=== PATIENT | female | born 1980 | race Two or more races ===

== ENCOUNTER → 2017-11-11 16:49 | Outpatient (REF) | payer OTHER, SELFPAY ==
[2017-11-14 20:02] LABS: Neisseria gonorrhoeae, NAA Negative (Negative)
== END ==
LOC: LAB 16:49
PROVIDERS: Visit Provider Nurse Practitioner Obstetrics & Gynecology
DX: R10.9 Unspecified abdominal pain (principal)
CPT/HCPCS: 87491; 87591

== ENCOUNTER → 2017-11-12 15:30 | Outpatient (CLI) | payer OTHER, SELFPAY ==
[2017-11-12 15:44] LABS: Basophils % 0.4 % (0.1-2.0); Eosinophils # 0.2 K/mm3 (0.0-0.4); Eosinophils % 2.1 % (0.1-12.0); Hematocrit 43.1 % (37.0-47.0); Hemoglobin 13.5 g/dL (12.2-16.2); Lymphocytes # 2.1 K/mm3 (0.7-4.5); Lymphocytes % 24.4 K/mm3 (10-50); Mean Corpuscular HGB Conc 31.3 g/dL (31.8-35.4); Mean Corpuscular Hemoglobin 28.8 pg (27.0-31.2); Mean Platelet Volume 7.8 fl (7.4-10.4); Monocytes # 0.5 K/mm3 (0.1-1.0); Monocytes % 5.2 % (1.7-9.3); Neutrophils # 5.9 K/mm3 (1.8-7.8); Neutrophils % 67.9 % (37.0-80.0); Platelet Count 269 K/mm3 (142-424); Red Blood Count 4.68 M/mm3 (4.20-5.40); Red Cell Distribution Width 12.1 % (11.5-17.5); White Blood Count 8.6 K/mm3 (4.8-10.8)
== END ==
PROVIDERS: Visit Provider Nurse Practitioner Obstetrics & Gynecology
DX: R10.2 Pelvic and perineal pain (principal)
CPT/HCPCS: 36415; 85025

== ENCOUNTER 2017-11-12 16:29 | Outpatient (CLI) | payer OTHER, SELFPAY ==
[2017-11-12 16:51] VITALS: BP 133/84; PULSE 71; RESP 18; TEMP 36.8; O2SAT 98
[2017-11-12 17:20] VITALS: BP 122/85; PULSE 70; RESP 18; TEMP 36.8; O2SAT 98
--- NOTE | 2017-11-12 17:20 | PC.NURSE ---
11/12/17 Chuy Consulted with pharmacy regarding pt allergy to Cephalosporins. Pt states she has received Rocephin in past without problems. Pt feels safe to receive Rocephin. Pt aware and understanding of all s/s medication reaction.
--- NOTE | 2017-11-12 17:41 | PC.NURSE ---
11/12/17 1720 Pt with no s/s reaction to Rocephin noted.
== END 2017-11-12 17:25 | disposition home or self-care (01) ==
LOC: INF 16:30
PROVIDERS: PCP Family Medicine; Visit Provider Nurse Practitioner Obstetrics & Gynecology
DX: R10.2 Pelvic and perineal pain (principal); R10.9 Unspecified abdominal pain
CPT/HCPCS: 96372

== ENCOUNTER → 2018-01-06 11:59 | Outpatient (CLI) | payer OTHER, SELFPAY ==
--- NOTE | 2018-01-06 09:17 | XR_ITS ---
XR shoulder LT min 2V HISTORY: Left shoulder injury with pain ITS.REASON: AP, AXILLARY AND Y VIEWS ORDERING PHYSICIAN: Chaitanya Hein MD PATIENT AGE: 37 years Comparison: None FINDINGS: No fracture or dislocation. No lytic or blastic change. There is normal mineralization. The joint spaces are well-preserved. No significant degenerative/arthritic changes. No erosive changes evident. IMPRESSION: Negative, no acute finding
--- NOTE | 2018-01-06 12:01 | MR_ITS ---
MR shoulder LT wo con HISTORY:Left shoulder pain and instability and limited range of motion following injury ITS.REASON: left shoulder instability ORDERING PHYSICIAN: Chaitanya Hein MD PATIENT AGE: 37 years Comparison: None TECHNIQUE: Standard multiplanar multiecho sequences are performed without contrast. FINDINGS: No acute fracture or dislocation is evident. There is downward sloping of the acromion anteriorly with mild subacromial stenosis. There is some thickening of the supraspinatus tendon distally with increased T2 signal consistent with tendinopathy/tendinosis. No definite tear apparent. There is a lobular area of decreased T1 and T2 signal along the distal aspect of the supraspinatous tendon laterally. This is felt to represent some hyperostosis of the anterior aspect of the bicipital groove. Review of the plain films does demonstrates a subtle calcific density at the bicipital tendon groove in retrospect. This could be due to old injury. No donor site apparent that would indicate an avulsion-type fracture. The infraspinatus and teres minor tendons appear intact. There is a small amount fluid in the subdeltoid region and within the bicipital tendon sheath. Bicipital tendon to the long head of the biceps appears intact. A small amount fluid also noted deep to the infraspinatus tendon. There is thickening of the distal aspect of the supraspinatus tendon with small amount of fluid signal intensity at the distal supraspinatus just anterior to the bicipital tendon groove There is a mild degree of motion artifact on the axial images. The anterior labrum shows some slight increased T2 signal with some minimal irregularity of the articular surface. A definite labral tear however is not identified on both the coronal and axial images. No fracture or bone bruise. IMPRESSION: 1. Tendinopathy/tendinosis of the supraspinatus tendon. No definite tear of the supraspinatus tendon. 2. There is thickening of the distal aspect of the subscapularis tendon consistent with tendinopathy/tendinosis with some fluid signal intensity distally. 3. Slight increased T2 signal of the anterior glenoid labrum which could be posttraumatic. A definite labral tear not identified. Evaluation of the anterior labrum is limited secondary to motion artifact and lack of intra-articular contrast. There is a prominent sublabial recess. 4. Hypertrophic change along the anterior aspect of the bicipital groove.
== END ==
PROVIDERS: Family Provider Family Medicine; PCP Family Medicine; Visit Provider Orthopaedic Surgery
DX: M25.312 Other instability, left shoulder (principal)
CPT/HCPCS: 73030; 73221

== ENCOUNTER → 2018-02-05 08:56 | Outpatient (CLI) | payer OTHER, SELFPAY ==
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
== END ==
PROVIDERS: PCP Family Medicine; Visit Provider Family Medicine
DX: M53.82 Other specified dorsopathies, cervical region (principal); M54.2 Cervicalgia; V89.2XXD Person injured in unspecified motor-vehicle accident, traffic, subsequent encounter
CPT/HCPCS: 72050

== ENCOUNTER 2018-02-05 17:00 | Outpatient (RCR) | payer OTHER, SELFPAY ==
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
== END 2018-02-05 17:01 | disposition home or self-care (01) ==
LOC: PT 17:00
PROVIDERS: Family Provider Family Medicine; PCP Family Medicine; Visit Provider Family Medicine
DX: M53.82 Other specified dorsopathies, cervical region (principal); M62.838 Other muscle spasm
CPT/HCPCS: 97010; 97014; 97110; 97140; 97163; G0283

== ENCOUNTER 2018-04-28 17:00 | Outpatient (RCR) | payer OTHER, SELFPAY | END 2018-04-28 17:05 | disposition home or self-care (01) | LOC: PT 17:00 | PROVIDERS: Family Provider Family Medicine; PCP Family Medicine; Visit Provider Physician Assistant | DX: Z48.89 Encounter for other specified surgical aftercare (principal) | CPT/HCPCS: 97010; 97014; 97016; 97110; 97140; 97163; G0283 ==

== ENCOUNTER → 2018-06-30 16:03 | Outpatient (CLI) | payer OTHER, SELFPAY ==
[2018-06-30 18:15] LABS: HCG Qualitative, Serum Negative (Negative)
[2018-07-02 08:45] LABS: HIV Screen 4th Generation wRfx Non Reactive (Non Reactive)
[2018-07-02 09:30] LABS: Rapid Plasma Reagin Ab Titer Non Reactive (NonRea<1:1)
[2018-07-02 09:31] LABS: HSV 2 IgG, Type Spec <0.91 index (0.00-0.90)
[2018-07-02 11:29] LABS: Hep A Ab, IgM Negative (Negative); Hepatitis B Core Antibody IgM Negative (Negative); Hepatitis B Surface Antigen Negative (Negative)
[2018-07-02 11:51] LABS: Hepatitis C Antibody <0.1 s/co ratio (0.0-0.9)
== END ==
PROVIDERS: Visit Provider Nurse Practitioner Obstetrics & Gynecology
DX: Z72.51 High risk heterosexual behavior (principal)
CPT/HCPCS: 36415; 80074; 84703; 86592; 86695; 86703; 86790; G0432

== ENCOUNTER → 2018-07-15 16:14 | Outpatient (CLI) | payer OTHER, SELFPAY ==
--- NOTE | 2018-07-15 16:16 | MM_ITS ---
MM Dig screening mamm BI w/CAD CAD Screening COMPARISON: None, this is baseline INDICATION: There is a history of breast cancer in the patient's maternal aunt. TECHNIQUE: Standard CC and MLO images were obtained. R2 CAD reviewed. FINDINGS: Prominent diffuse somewhat heterogenic fibroglandular densities are seen throughout both breasts and the findings are fairly symmetrical bilaterally. There is no suspicious lesion and there are no suspicious microcalcifications. IMPRESSION: Moderate diffuse breast density with no suspicious lesion seen BI-RADS Category: 1 Negative RECOMMENDED FOLLOW-UP: 1YR - 1 YEAR FOLLOW-UP after the age of 40 (A letter has been sent to the patient regarding results of the study.)
== END ==
PROVIDERS: PCP Family Medicine; Visit Provider Nurse Practitioner Obstetrics & Gynecology
DX: Z12.31 Encounter for screening mammogram for malignant neoplasm of breast (principal); Z80.3 Family history of malignant neoplasm of breast
CPT/HCPCS: 77067

== ENCOUNTER → 2019-01-06 07:17 | Outpatient (CLI) | payer OTHER, SELFPAY ==
--- NOTE | 2019-01-06 15:35 | XR_ITS ---
PROCEDURE: XR CERVICAL SPINE W FLEX/EXT CLINICAL INDICATION: neck pain COMPARISON: [id number] XR cervical spine 5V from 02/05/2018 FINDINGS: There is reversal of the cervical lordosis with mild anterolisthesis of C3 on C4 of 2 mm and C4 on C5 of 2 mm. No fracture or dislocation is evident. No lytic or blastic change. No foraminal narrowing. Flexion and extension views of the cervical spine show no abnormal subluxation in flexion or extension. IMPRESSION: Straightening of lordosis with minimal anterolisthesis of C3 on 4 and C4 on 5 which could be due to patient positioning or muscle spasm. Otherwise negative Dictated by: Kenneth Melo MD 01/06/2019 17:48 Signed by: <Electronically signed by Kenneth Melo MD in [place]> 01/06/2019 17:48
== END ==
PROVIDERS: PCP Family Medicine; Visit Provider Orthopaedic Surgery
DX: M54.2 Cervicalgia (principal)
CPT/HCPCS: 72052

== ENCOUNTER → 2019-01-13 12:45 | Outpatient (CLI) | payer OTHER, SELFPAY ==
--- NOTE | 2019-01-13 12:47 | MR_ITS ---
PROCEDURE: MR CERVICAL SPINE WO CON CLINICAL INDICATION: neck pain Neck pain radiating into the left side and upper back area the COMPARISON: XR CERVICAL SPINE W FLEX/EXT from 01/06/2019 TECHNIQUE: Standard multiplanar multiecho sequences are performed without contrast. 3-D MIP and myelographic images are also rendered and reviewed FINDINGS: There is normal alignment. The cranial cervical junction has an unremarkable appearance. The spinal cord is unremarkable. C2-C3: There is some minimal disc desiccation. C3-C4: Minimal disc desiccation. C4-C5: There is minimal anterolisthesis of C4 on C5 of 2 mm. There is minimal right paracentral disc protrusion without impingement C5-C6: Minimal bulging disc. No canal stenosis. C6-C7: Bulging disc with a small right paracentral disc protrusion. There is minimal contour deformity along the anterior and right aspect of the cord as seen on the axial images with minimal flattening noted but without obvious direct impingement of the disc on the cord. The canal is narrowed at this level due to the protruding disc measuring 10 mm. No foraminal narrowing. There is minimal right lateral recess narrowing. C7-T1: Unremarkable. IMPRESSION: 1. Small right paracentral disc protrusion is C6-C7 with some mild contour deformity along the anterior right aspect of the cord but no direct cord compression from the disc. There narrowing of the canal at 10 mm and mild right lateral recess narrowing at this level. 2. Minimal disc desiccation at C2-C3 and C3-C4 with minimal bulging disc at C5-C6 and minimal right paracentral disc protrusion without impingement at C4-C5 Dictated by: Kenneth Melo MD 01/14/2019 08:49 Signed by: <Electronically signed by Kenneth Melo MD in [place]> 01/14/2019 08:49
== END ==
PROVIDERS: PCP Family Medicine; Visit Provider Orthopaedic Surgery
DX: M54.2 Cervicalgia (principal)
CPT/HCPCS: 72141; 76376

== ENCOUNTER 2019-01-18 17:21 | Outpatient (RCR) | payer OTHER, SELFPAY ==
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
== END 2019-01-18 17:25 | disposition home or self-care (01) ==
LOC: PT 17:21
PROVIDERS: Visit Provider Orthopaedic Surgery
DX: M54.2 Cervicalgia (principal); S13.4XXA Sprain of ligaments of cervical spine, initial encounter
CPT/HCPCS: 97010; 97012; 97014; 97110; 97163; G0283

== ENCOUNTER → 2019-05-18 12:49 | Outpatient (CLI) | payer OTHER, SELFPAY ==
[2019-05-18 12:55] LABS: Adenovirus F 40/41, stool Not Detected (NotDetected); Astrovirus Not Detected (NotDetected); Campylobacter Not Detected (NotDetected); Clostridium Difficile A/B, PCR Not Detected (NotDetected); Cryptosporidium Not Detected (NotDetected); Cyclospora Cayetanesis Not Detected (NotDetected); Entamoeba histolytica Not Detected (NotDetected); Enterotoxigenic E coli Not Detected (NotDetected); Giardia lamblia Not Detected (NotDetected); Norovirus Not Detected (NotDetected); Plesimonas Shigalloides, PCR Not Detected (NotDetected); Rotavirus A Not Detected (NotDetected); Salmonella, PCR Not Detected (NotDetected); Sapovirus Not Detected (NotDetected); Shiga-like toxin E coli Not Detected (NotDetected); Shigella Enterovasive E coli Not Detected (NotDetected); Vibrio Cholerae Not Detected (NotDetected); Vibrio, PCR Not Detected (NotDetected); Yersinia Entercolitica, PCR Not Detected (NotDetected)
[2019-05-18 16:06] LABS: Enteropathogenic E coli Detected (NotDetected)
[2019-05-18 16:07] LABS: Enteroaggregative E coli Detected (NotDetected)
== END ==
PROVIDERS: Visit Provider Family Medicine
DX: R19.7 Diarrhea, unspecified (principal); A04.0 Enteropathogenic Escherichia coli infection; A04.4 Other intestinal Escherichia coli infections
CPT/HCPCS: 87507

== ENCOUNTER → 2019-07-01 09:10 | Outpatient (CLI) | payer OTHER, SELFPAY ==
[2019-07-01 09:11] LABS: Adenovirus F 40/41, stool Not Detected (NotDetected); Astrovirus Not Detected (NotDetected); Campylobacter Not Detected (NotDetected); Clostridium Difficile A/B, PCR Not Detected (NotDetected); Cryptosporidium Not Detected (NotDetected); Cyclospora Cayetanesis Not Detected (NotDetected); Entamoeba histolytica Not Detected (NotDetected); Enteroaggregative E coli Not Detected (NotDetected); Enteropathogenic E coli Not Detected (NotDetected); Enterotoxigenic E coli Not Detected (NotDetected); Giardia lamblia Not Detected (NotDetected); Norovirus Not Detected (NotDetected); Plesimonas Shigalloides, PCR Not Detected (NotDetected); Rotavirus A Not Detected (NotDetected); Salmonella, PCR Not Detected (NotDetected); Sapovirus Not Detected (NotDetected); Shiga-like toxin E coli Not Detected (NotDetected); Shigella Enterovasive E coli Not Detected (NotDetected); Vibrio Cholerae Not Detected (NotDetected); Vibrio, PCR Not Detected (NotDetected); Yersinia Entercolitica, PCR Not Detected (NotDetected)
== END ==
PROVIDERS: Visit Provider Nurse Practitioner
DX: R19.7 Diarrhea, unspecified (principal); Z86.19 Personal history of other infectious and parasitic diseases
CPT/HCPCS: 87507

== ENCOUNTER → 2019-08-11 08:15 | Outpatient (CLI) | payer OTHER, SELFPAY ==
[2019-08-11 09:20] LABS: Basophils % 0.5 % (0.1-2.0); Eosinophils # 0.1 K/mm3 (0.0-0.4); Eosinophils % 1.8 % (0.1-12.0); Hematocrit 43.7 % (37.0-47.0); Lymphocytes # 1.9 K/mm3 (0.7-4.5); Lymphocytes % 31.4 % (10-50); Mean Corpuscular HGB Conc 31.9 g/dL (31.8-35.4); Mean Corpuscular Hemoglobin 29.5 pg (27.0-31.2); Mean Corpuscular Volume 92.4 fl (81-99); Mean Platelet Volume 8.2 fl (7.4-10.4); Monocytes # 0.3 K/mm3 (0.1-1.0); Monocytes % 4.4 % (1.7-9.3); Neutrophils # 3.8 K/mm3 (1.8-7.8); Platelet Count 247 K/mm3 (142-424); Red Blood Count 4.73 M/mm3 (4.20-5.40); Red Cell Distribution Width 12.5 % (11.5-17.5); White Blood Count 6.2 K/mm3 (4.8-10.8)
[2019-08-11 09:21] LABS: Adenovirus F 40/41, stool Not Detected (NotDetected); Astrovirus Not Detected (NotDetected); Campylobacter Not Detected (NotDetected); Clostridium Difficile A/B, PCR Not Detected (NotDetected); Cryptosporidium Not Detected (NotDetected); Cyclospora Cayetanesis Not Detected (NotDetected); Entamoeba histolytica Not Detected (NotDetected); Enteroaggregative E coli Not Detected (NotDetected); Enteropathogenic E coli Not Detected (NotDetected); Enterotoxigenic E coli Not Detected (NotDetected); Giardia lamblia Not Detected (NotDetected); Norovirus Not Detected (NotDetected); Plesimonas Shigalloides, PCR Not Detected (NotDetected); Rotavirus A Not Detected (NotDetected); Salmonella, PCR Not Detected (NotDetected); Sapovirus Not Detected (NotDetected); Shiga-like toxin E coli Not Detected (NotDetected); Shigella Enterovasive E coli Not Detected (NotDetected); Vibrio Cholerae Not Detected (NotDetected); Vibrio, PCR Not Detected (NotDetected); Yersinia Entercolitica, PCR Not Detected (NotDetected)
[2019-08-11 09:51] LABS: Erythrocyte Sedimentation Rate 7 mm/hr (0-20)
[2019-08-11 10:14] LABS: Occult Blood,Stool Negative (Negative)
[2019-08-11 11:18] LABS: Alanine Aminotransferase 20 U/L (12-78); Albumin Level 4.1 g/dl (3.5-5.0); Albumin/Globulin Ratio 1.6 (1.1-1.8); Alkaline Phosphatase 117 U/L (38-126); Anion Gap 9.8 mEq/L (5-15); Aspartate Amino Transferase 28 U/L (14-36); Bilirubin,Total 0.3 mg/dl (0.2-1.3); Blood Urea Nitrogen 12 mg/dl (7-17); Calcium 9.5 mg/dl (8.4-10.2); Carbon Dioxide 29 mmol/L (22.0-30.0); Chloride 104 mmol/L (98-107); Estimated Glomerular Filt Rate 71 ml/min (>60); GFR (African American) 86 ML/MIN (>60); Globulin 2.6 g/dL (1.3-3.2); Glucose 64 mg/dl (74-100); Potassium 3.8 mmoL/L (3.5-5.1); Sodium 139 mmol/L (136-145); Total Protein,Serum 6.7 g/dl (6.3-8.2)
[2019-08-11 11:23] LABS: C-Reactive Protein 0.7 mg/L (0-4)
[2019-08-11 11:52] LABS: Ferritin 59.9 ng/ml (6.24-137)
[2019-08-12 06:09] LABS: Iron 62 ug/dL (27-159); UIBC 231 ug/dL (131-425)
[2019-08-13 11:25] LABS: Deamidated Gliadin Abs, IgA 3 units (0-19); Deamidated Gliadin Abs, IgG 1 units (0-19); Endomysial IgA Antibody Negative (Negative); Iron Saturation 21 % (15-55); Reticulin IgA Antibody Negative titer (Neg:<1:2.5); Tissue Transglutaminase IgA Ab <2 U/mL (0-3); Tissue Transglutaminase IgG Ab <2 U/mL (0-5); Vitamin B12 952 pg/mL (232-1245); Vitamin D 25 Hydroxy 71.2 ng/mL (30.0-100.0)
[2019-08-13 15:29] LABS: Calprotectin, Fecal <16 ug/g (0-120)
[2019-08-13 15:29] LABS: Saccharomyces cerevisiae, IgA <20.0 Units (0.0-24.9); Saccharomyces cerevisiae, IgG 55.7 Units (0.0-24.9)
[2019-08-16 14:29] LABS: Lactoferrin, Fecal, Quant. <1.00 ug/mL(g) (0.00-7.24)
== END ==
PROVIDERS: Visit Provider Internal Medicine Gastroenterology
DX: R19.7 Diarrhea, unspecified (principal)
CPT/HCPCS: 36415; 80053; 82272; 82607; 82652; 82728; 83516; 83540; 83550; 83630; 83993; 85025; 85651; 86140; 86255; 86256; 86671; 87205; 87507; G0328

== ENCOUNTER → 2019-09-29 07:47 | Outpatient (CLI) | payer OTHER, SELFPAY ==
[2019-09-29 07:54] LABS: Adenovirus,PCR Not Detected (NotDetected); Bordetella Pertussis Not Detected (NotDetected); Chlamydophila Pneumoniae, PCR Not Detected (NotDetected); Coronavirus 19, PCR Not Detected (NotDetected); Coronavirus 229E Not Detected (NotDetected); Coronavirus NL63 Not Detected (NotDetected); Coronavirus OC43 Not Detected (NotDetected); Coronovirus HKU1,PCR Not Detected (NotDetected); Human Metapneumovirus Not Detected (NotDetected); Influenza A, PCR Not Detected (NotDetected); Influenza AH1, 2009 Not Detected (NotDetected); Influenza AH1, PCR Not Detected (NotDetected); Influenza AH3,PCR Not Detected (NotDetected); Influenza B, PCR Not Detected (NotDetected); Mycoplasma Pneumoniae, PCR Not Detected (NotDected); Parainfluenza 1, PCR Not Detected (NotDetected); Parainfluenza 2, PCR Not Detected (NotDetected); Parainfluenza 3, PCR Not Detected (NotDetected); Parainfluenza 4, PCR Not Detected (NotDetected); Respiratory Syncytial Virus Not Detected (NotDetected); Rhinovirus/Enterovirus Not Detected (NotDetected)
--- NOTE | 2019-09-29 16:24 | PC.NURSE ---
notified pt of negative COVID 19 results.
== END ==
PROVIDERS: Visit Provider Internal Medicine Gastroenterology
DX: Z01.818 Encounter for other preprocedural examination (principal)
CPT/HCPCS: 87581; 87633; 87798

== ENCOUNTER 2019-10-01 07:23 | Day surgery (SDC) | payer OTHER, SELFPAY ==
--- NOTE | 2019-09-28 10:40 | SUR.PREOP ---
09/28/19 @ 1042--PHONE CALL MADE TO PATIENT. PATIENT UNDERSTANDS THAT LAB WORK AND COVID TESTING NEEDS TO BE COMPLETED @ BEFORE 12 PM ON 09/29/19. PATIENT UNDERSTANDS IF LAB WORK AND COVID-19 TESTS ARE NOT COMPLETED BY 12PM ON THAT DATE, THE SURGERY SCHEDULED WILL BE CANCELLED AND RESCHEDULED FOR ANOTHER TIME.
[2019-09-30 10:08] VITALS: BMI 49.1
[2019-10-01] VITALS (7 sets, daily range): BP systolic 82–130; BP diastolic 47–84; PULSE 62–80; RESP 18; TEMP 36.2–36.3; O2SAT 94–100
[2019-10-01 08:06] LABS: Urine Pregnancy, HCG Qual. Negative (Negative)
--- NOTE | 2019-10-01 08:39 | HMH.ANESCL ---
[facility] Anesthesia Checklist - Structural Data Admitted From: Home Planned Operative Procedure/s: egd/colonoscopy Consent for Planned Operative Procedure(s) Verified: Yes - Airway Assessment C-Spine Mobility Assessed: Yes TMJ Mobility Assessed: Yes Dentition: Good Dentition - Neurological Assessment Level of Consciousness: Awake, Alert, Appropriate - Anesthesia Plan Anesthesia Risk discussed: Yes Anesthesia Plan: Verified ASA Class: II Anesthesia Type: MAC [facility] History I have reviewed the patient's past medical history: Yes Medical History: Reports:: Anxiety Denies:: Cancer, Depression, Diabetes Mellitus Type 1, Diabetes Mellitus Type 2, Hyperlipidemia, Hypertension, Internal Pacemaker, Migraine, MRSA, Seizures *Have you ever received a pneumonia vaccine?: No *Have you received a flu vaccine this season?: Yes Other Medical History: Reports: Other Anesthesia experience/problems:: none Laterality Cases: Left: Arthroscopy Shoulder Other Surgeries: Yes: Other. 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
--- NOTE | 2019-10-01 08:43 | HMH.PROC ---
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 She has had some longstanding digestive issues dating back to college. She was diagnosed with a history of Reyna's esophagus and prior peptic ulcer disease. She did travel on a cruise in March around 2018 and developed a diarrheal illness. In April, she was found to have enteropathogenic and entero-aggregative E. coli and was treated. She required more than 1 round of antibiotics. She has continued to have urgency and some diarrhea. She reports postprandial bloating, gassiness and crampy discomfort. She has lost approximately 8 to 10 pounds. She did have PCR testing more recently showing no microbial pathogens. Her recent blood work showed normal CBC, CMP, CRP, sed rate. Her celiac serologies were normal. She did have an elevated ASCA IgG antibody (Crohn's serology) at 55. She did take the Bentyl and Creon which helped to control her symptoms. She took Viberzi for 1 or 2 weeks but this led to some crampy discomfort and this was discontinued. Her stool testing showed normal fecal leukocytes, normal lactoferrin normal fecal calprotectin and normal Hemoccult testing. Procedure: Prior to the procedure, a history and physical exam was performed, and patient's medications and allergies were reviewed. The risks, benefits and alternatives of the sedation and procedure were discussed with the patient. All questions were answered and informed consent was obtained. The patient was brought to the procedure room. Patient identification and proposed procedure were verified by the physician and the nurse. The patient was placed in a left lateral decubitus position and the scope was passed under direct vision. Throughout the procedure, the patient's blood pressure, pulse, and oxygen saturations were monitored continuously. The upper GI endoscopy was accomplished without difficulty. The patient tolerated the procedure well. Findings: The scope was passed directly into the upper esophagus and advanced to the third portion of the duodenum. The post bulbar duodenum and duodenal bulb were normal with normal mucosa and conniventes. There was no evidence of scalloping of the conniventes and the mucosa was normal. Cold biopsies were obtained to rule out celiac disease. The scope was withdrawn through a normal duodenal bulb and pylorus into the stomach. There was evidence of linear reactive gastropathy of the antrum of the stomach. The remainder of the antrum, body and fundus of the stomach were grossly normal. Upon retroflexion there was a very small sliding 1 to 2 cm hiatal hernia. 2 biopsies were taken in the antrum and along the lesser curvature for histology to rule out gastritis and/or H pylori. The scope was then withdrawn into the esophagus. There was no evidence of reflux esophagitis or Reyna's. There was 1 very small island of salmon-colored mucosa near the squamocolumnar junction that was biopsied to rule out very short segment Reyna's esophagus. There were some tertiary contractions and mild esophageal dysmotility. The remainder of the esophageal mucosa was normal. Impression: 1. Nonerosive GERD with mild esophageal dysmotility 2. Mild linear reactive gastropathy of the antrum with some bile reflux Plan: I will follow-up the biopsies and discussed the findings with the patient and family. I will proceed with diagnostic colonoscopy. We will discuss additional dietary measures (low FODMAP) and treatment options subsequent to diagnostic testing. I would recommend sucrose breath testing. I would certainly consider course of Xifaxan. I do feel that she has postinfect
--- NOTE | 2019-10-01 09:16 | P.PCN_ITS ---
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 She did develop a diarrheal illness in March 2019 after a cruise. In April, she was diagnosed with 2 strains of E. coli. She was treated with more than one course of antibiotics. Subsequent PCR testing was negative for infectious pathogens. She has continued to have urgency, frequency, diarrhea and crampy discomfort. She has some bloating and gassiness. She does have longstanding digestive issues for 15 to 20 years. The patient did have labs that were essentially normal except for an elevated ASCA IgG antibody of 55. The patient has improved some with Bentyl and Creon but continues to have symptoms. She tried Viberzi which led to some crampy abdominal discomfort. The patient's stool studies showed normal fecal leukocytes, fecal calprotectin and normal lactoferrin. She was Hemoccult negative. Procedure: Prior to the procedure, a history and physical exam was performed, and patient's medications and allergies were reviewed. The risks, benefits and alternatives of the sedation and procedure were discussed with the patient. All questions were answered and informed consent was obtained. The patient was brought to the procedure room. Patient identification and proposed procedure were verified by the physician and the nurse. The patient was placed in a left lateral decubitus position and the scope was passed under direct vision. Throughout the procedure, the patient's blood pressure, pulse, and oxygen saturations were monitored continuously. The colonoscopy was accomplished without difficulty. The patient tolerated the procedure well. Findings: On digital rectal examination there was normal rectal tone. There were no external hemorrhoids. The colonoscope was introduced through the anal canal to the rectum and advanced to the cecum. The ileocecal valve and appendiceal orifice were identified. The scope was advanced 10 to 15 cm into the ileum which appeared grossly normal. Cold biopsies were taken from the ileum to rule out microscopic ileitis. The scope was then withdrawn into the colon. Cold biopsies were taken from the right colon to rule out microscopic colitis. The remaining cecum, ascending, transverse and descending colon were normal. There was moderate colonic redundancy/tortuosity. There was a 5 mm polyp in the sigmoid colon removed via cold snare polypectomy. There were no mucosal abnormalities identified. Upon retroflexion within the rectum there were grade 1 internal hemorrhoids.The preparation was excellent throughout with [place] Preparation Score of 9. The cecal time was 12 minutes. Impression: 1. Diminutive sigmoid colon polyp 2. Mild colonic redundancy 3. Grade 1 internal hemorrhoids Plan: I will follow-up the biopsies to rule out microscopic/lymphocytic colitis. 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 We will discuss additional diet and treatment options. I will have her do sucrose breath testing. I will follow-up the polyp histology and recommend repeat screening/surveillance colonoscopy in 5 to 7 years if the polyp is adenomatous.
== END 2019-10-01 10:27 | disposition home or self-care (01) ==
PROVIDERS: PCP Family Medicine; Visit Provider Internal Medicine Gastroenterology
PROC: 0DJ08ZZ Inspection of Upper Intestinal Tract, Via Natural or Artificial Opening Endoscopic (ICD-10-PCS; CPT 43235; principal; 2019-10-01 08:30)
DX: R19.7 Diarrhea, unspecified (principal); K21.9 Gastro-esophageal reflux disease without esophagitis; K31.9 Disease of stomach and duodenum, unspecified; K22.4 Dyskinesia of esophagus; K64.0 First degree hemorrhoids; D12.5 Benign neoplasm of sigmoid colon
CPT/HCPCS: 45385; 45380; 43239; 81025

== ENCOUNTER → 2020-01-03 15:44 | Outpatient (POV) | payer OTHER, SELFPAY | PROVIDERS: PCP Family Medicine; Visit Provider Nurse Practitioner Family | DX: Z00.00 Encounter for general adult medical examination without abnormal findings (principal) ==

== ENCOUNTER 2020-01-12 16:03 | Emergency (ER) | payer OTHER, SELFPAY ==
[2020-01-12 16:04] VITALS: BP 141/95; PULSE 99; RESP 17; TEMP 37.2; O2SAT 97; BMI 22.3
[2020-01-12 16:28] LABS: Basophils % 0.4 % (0.1-2.0); Eosinophils # 0.1 K/mm3 (0.0-0.4); Eosinophils % 1.1 % (0.1-12.0); Hematocrit 44.7 % (37.0-47.0); Hemoglobin 15.2 g/dL (12.2-16.2); Lymphocytes # 2.2 K/mm3 (0.7-4.5); Lymphocytes % 20.5 % (10-50); Mean Corpuscular HGB Conc 34.1 g/dL (31.8-35.4); Mean Corpuscular Hemoglobin 31.5 pg (27.0-31.2); Mean Corpuscular Volume 92.2 fl (81-99); Monocytes # 0.5 K/mm3 (0.1-1.0); Monocytes % 4.9 % (1.7-9.3); Neutrophils # 7.9 K/mm3 (1.8-7.8); Neutrophils % 73.1 % (37.0-80.0); Platelet Count 263 K/mm3 (142-424); Red Blood Count 4.84 M/mm3 (4.20-5.40); Red Cell Distribution Width 12.5 % (11.5-17.5); White Blood Count 10.9 K/mm3 (4.8-10.8)
[2020-01-12 16:38] LABS: Alanine Aminotransferase 23 U/L (12-78); Albumin Level 4.5 g/dl (3.5-5.0); Alkaline Phosphatase 89 U/L (38-126); Aspartate Amino Transferase 34 U/L (14-36); Bilirubin,Direct 0.1 mg/dl (0.0-0.4); Bilirubin,Indirect 0.5 mg/dL (0.0-0.9); Bilirubin,Total 0.6 mg/dl (0.2-1.3); Bilirubin,Unconjugated 0.6 mg/dL (0.0-1.1); Total Protein,Serum 7.6 g/dl (6.3-8.2)
--- NOTE | 2020-01-12 16:47 | HMH.EDWNDL ---
ED Disposition Clinical Impression: Needle stick injury of finger of left hand Disposition: Home, Self-Care Condition on Discharge: Good Instructions: DI for Wound Infection Additional Instructions: Blood has been collected and we have prescribed sulfa. Please follow up as needed. Your are up to date on tetanus Prescriptions: Sulfamethoxazole/Trimethoprim [Bactrim DS tablet] 1 each PO BID 7 Days #14 tab Transmission Status: Pending to [facility] Referrals: Trevin Harmon MD [Primary Care Provider] - Time of Disposition: 16:56 - Critical Care Critical Care Time: No Attestation: On 01/12/20, the high probability of a clinically significant, sudden or life threatening deterioration of the following system(s) required my full and direct attention, intervention and personal management. The time I documented below is in addition to time spent performing reported procedures but includes the following listed in this critical care notation. Medical Decision Making - Medical Records Medical records reviewed: Yes: I reviewed the patient's medical records. 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 States the patient is not suspected of having hepatitis or HIV. We have collected the necessary blood work and she will be dc home with a sulfa. The results will be intimated to her in due course - Joel Inquiry Pt receiving controlled substance: No Vital Signs: 01/12/20 16:04 Temperature 98.9 F Temperature Source Oral Pulse Rate [Right Radial] 99 H Respiratory Rate 17 Blood Pressure [Right Arm] 141/95 H Blood Pressure Mean [Right Arm] 110 02 Sat by Pulse Oximetry 97 Oxygen Delivery Method Room Air - Lab Data Lab results reviewed: Yes: I reviewed the patient's lab results. Lab Results 01/12/20 16:15: WBC 10.9 H, RBC 4.84, Hgb 15.2, Hct 44.7, MCV 92.2, MCH 31.5 H, MCHC 34.1, RDW 12.5, Plt Count 263, MPV 8.0, Neut % (Auto) 73.1, Lymph % (Auto) 20.5, [place] % (Auto) 4.9, Eos % (Auto) 1.1, Baso % (Auto) 0.4, Neut # (Auto) 7.9 H, Lymph # (Auto) 2.2, [place] # (Auto) 0.5, Eos # (Auto) 0.1, Baso # (Auto) 0.0 Result diagrams: 01/12/20 16:15 Orders (Tests/Meds): ORDERS Category Date Time Status HBsAg Screen Stat Lab 01/12/20 16:15 Received HIV Panel [id number] Stat Lab 01/12/20 16:15 Received Hepatitis B Surf Ab Quant Stat Lab 01/12/20 16:15 Received Hepatitis C Antibody Stat Lab 01/12/20 16:15 Received Liver Panel Stat Lab 01/12/20 16:15 Received PT/PTT Stat Lab 01/12/20 16:15 Received Wound/Laceration HPI - General Chief Complaint: Wound/Laceration Stated Complaint: WC @ 01/11 Needle Stick Time Seen by Provider: 01/12/20 16:40 Mode of Arrival: Ambulatory Source of Information: Patient Limitations: No Limitations Description of Symptoms (Recalled from ER Triage Doc. by RN): pt presents to ed with co dirty needle stick to left hand while operating on a patient. 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 States the patient is not suspected of having hepatitis or HIV Onset (ago): minute(s) Extremity Location: Left: hand Place: work Patient tetanus UTD: Yes Context: accidental Associated symptoms: none - Related Data Home Medications Medication Instructions Recorded Confirmed bupropion HCl 150 mg 24 hr tablet, 150 mg PO QAM 11/11/17 09/30/19 extended release Elagolix Sodium [Orilissa] 150 mg PO DAILY 03/03/19 09/30/19 Multivitamin [Multi-Day Vitamins] 1 each PO DAILY 03/03/19 09/30/19 Dicyclomine HCl [Bentyl 10mg 10 mg PO TID 09/30/19 09/30/19 capsule] Lipase/Protease/Amylase [López Guan 1 each PO TID 09/30/19 09/30/19 36,000 Units Capsule] Previous Rx's Medication Instructions Recorded scopolamine base 1 mg over 3 da
[2020-01-12 16:49] LABS: Activated Partial Thrombo Time 23.6 seconds (23.6-34.0); INR 1.03 (0.9-1.1); Prothrombin Time 10.6 seconds (9.4-11.8)
[2020-01-12 17:02] VITALS: BP 129/85; PULSE 83; RESP 17; TEMP 37.2; O2SAT 99
[2020-01-14 10:16] LABS: HIV Screen 4th Generation wRfx Non Reactive (Non Reactive); Hepatitis B Surf Ab Quant 955.2 mIU/mL (Immunity>9.9); Hepatitis B Surface Antigen Negative (Negative); Hepatitis C Antibody <0.1 s/co ratio (0.0-0.9)
== END 2020-01-12 17:03 | disposition home or self-care (01) ==
PROVIDERS: Emergency Provider Emergency Medicine; PCP Family Medicine
DX: S61.032A Puncture wound without foreign body of left thumb without damage to nail, initial encounter (principal); W22.8XXA Striking against or struck by other objects, initial encounter; Y92.69 Other specified industrial and construction area as the place of occurrence of the external cause; Y99.0 Civilian activity done for income or pay
CPT/HCPCS: 80076; 85025; 85610; 85730; 86703; 86706; 87340; 87380; 99282; G0432

== ENCOUNTER → 2020-06-09 14:12 | Outpatient (CLI) | payer OTHER, SELFPAY | PROVIDERS: PCP Family Medicine; Visit Provider Nurse Practitioner | DX: Z20.822 Contact with and (suspected) exposure to COVID-19 (principal) | CPT/HCPCS: U0003 ==

== ENCOUNTER 2020-08-02 12:32 | Emergency (ER) | payer OTHER, SELFPAY ==
[2020-08-02 12:33] VITALS: BP 128/95; PULSE 68; RESP 18; TEMP 36.8; O2SAT 100; BMI 22.8
--- NOTE | 2020-08-02 12:42 | HMH.EDGENADL ---
ED Disposition Clinical Impression: Laceration of left index finger Qualifiers: Encounter type: initial encounter Damage to nail status: without damage Foreign body presence: without foreign body Qualified Code(s): S61.211A - Laceration without foreign body of left index finger without damage to nail, initial encounter Disposition: Home, Self-Care Condition on Discharge: Good Instructions: DI for Laceration Repair-Skin Glue Additional Instructions: Bactrim as prescribed. Follow-up with infection control for test results. Prescriptions: Sulfamethoxazole/Trimethoprim [Bactrim DS tablet] 1 each PO BID #20 tab Transmission Status: Received by [id number] Referrals: Trevin Harmon MD [Primary Care Provider] - - Critical Care Critical Care Time: No Attestation: On 08/02/20, the high probability of a clinically significant, sudden or life threatening deterioration of the following system(s) required my full and direct attention, intervention and personal management. The time I documented below is in addition to time spent performing reported procedures but includes the following listed in this critical care notation. Medical Decision Making - Joel Inquiry Pt receiving controlled substance: No Vital Signs: 08/02/20 12:33 08/02/20 13:00 Temperature 98.2 F 98.2 F Temperature Source Oral Oral Pulse Rate 70 Pulse Rate [Left Radial] 68 Respiratory Rate 18 20 Blood Pressure 128/87 Blood Pressure [Left Radial Artery] 128/95 H Blood Pressure Mean [Left Radial Artery] 106 Blood Pressure Source [Left Radial Artery] Automatic Cuff Blood Pressure Position [Left Radial Artery] Sitting 02 Sat by Pulse Oximetry 100 Oxygen Delivery Method Room Air Room Air - Lab Data Lab Results 08/02/20 12:43: WBC 8.8, RBC 4.91, Hgb 14.6, Hct 45.9, MCV 93.4, MCH 29.7, MCHC 31.8, RDW 12.6, Plt Count 253, MPV 7.9, Neut % (Auto) 68.2, Lymph % (Auto) 25.3, [place] % (Auto) 5.5, Eos % (Auto) 0.6, Baso % (Auto) 0.4, Neut # (Auto) 6.0, Lymph # (Auto) 2.2, [place] # (Auto) 0.5, Eos # (Auto) 0.1, Baso # (Auto) 0.0 08/02/20 12:43: PT 11.1, INR 0.94, APTT 25.1 08/02/20 12:43: Total Bilirubin 0.7, Direct Bilirubin 0.0, Conjugated Bilirubin 0.0, Indirect Bilirubin 0.7, Unconjugated Bilirubin 0.8, AST 35, ALT 26, Alkaline Phosphatase 106, Total Protein 8.5 H, Albumin 4.9 Result diagrams: 08/02/20 12:43 Orders (Tests/Meds): ED MEDICATIONS Discontinued Medications Generic Name Dose Route Start Last Admin Trade Name Freq PRN Reason Stop Dose Admin Trimethoprim/Sulfamethoxazole 1 each 08/02/20 12:52 08/02/20 12:59 Sulfa/Trimethoprim 1 Tablet PO 08/02/20 12:53 1 each ONCE ONE Administration Protocol ORDERS Category Date Time Status HBsAg Screen Stat Lab 08/02/20 12:43 Received HIV Panel [id number] Stat Lab 08/02/20 12:43 Received Hepatitis B Surf Ab Quant Stat Lab 08/02/20 12:43 Received Hepatitis C Antibody Stat Lab 08/02/20 12:43 Received General Adult HPI - General Chief complaint: Wound/Laceration Stated complaint: WC [id number] exposure Time Seen by Provider: 08/02/20 12:42 Mode of Arrival: Ambulatory Limitations: No Limitations Description of Symptoms (Recalled from ER Triage Doc. 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 She would like to be on antibiotic for MRSA. She says that the patient is low risk for hepatitis and HIV and other blood-borne pathogens. - Related Data Home Medications Medication Instructions Recorded Confirmed Multivitamin [Multi-Day Vitamins] 1 each PO DAILY 03/03/19 07/03/20 Dicyclomine HCl [Bentyl 10mg 10 mg PO TID 09/30/19 07/03/20 capsule] Lipase/Pr
--- NOTE | 2020-08-02 12:56 | PC.NURSE ---
at bedside for laceration repair.
[2020-08-02 13:00] VITALS: BP 128/87; PULSE 70; RESP 20; TEMP 36.8; O2SAT 99
[2020-08-02 13:10] LABS: Basophils % 0.4 % (0.1-2.0); Eosinophils # 0.1 K/mm3 (0.0-0.4); Eosinophils % 0.6 % (0.1-12.0); Hematocrit 45.9 % (37.0-47.0); Hemoglobin 14.6 g/dL (12.2-16.2); Lymphocytes # 2.2 K/mm3 (0.7-4.5); Lymphocytes % 25.3 % (10-50); Mean Corpuscular HGB Conc 31.8 g/dL (31.8-35.4); Mean Corpuscular Hemoglobin 29.7 pg (27.0-31.2); Mean Corpuscular Volume 93.4 fl (81-99); Mean Platelet Volume 7.9 fl (7.4-10.4); Monocytes # 0.5 K/mm3 (0.1-1.0); Monocytes % 5.5 % (1.7-9.3); Neutrophils % 68.2 % (37.0-80.0); Platelet Count 253 K/mm3 (142-424); Red Blood Count 4.91 M/mm3 (4.20-5.40); Red Cell Distribution Width 12.6 % (11.5-17.5); White Blood Count 8.8 K/mm3 (4.8-10.8)
[2020-08-02 13:29] LABS: Alanine Aminotransferase 26 U/L (12-78); Albumin Level 4.9 g/dl (3.5-5.0); Alkaline Phosphatase 106 U/L (38-126); Aspartate Amino Transferase 35 U/L (14-36); Bilirubin,Indirect 0.7 mg/dL (0.0-0.9); Bilirubin,Total 0.7 mg/dl (0.2-1.3); Bilirubin,Unconjugated 0.8 mg/dL (0.0-1.1); Total Protein,Serum 8.5 g/dl (6.3-8.2)
[2020-08-02 13:42] LABS: Activated Partial Thrombo Time 25.1 seconds (23.6-34.0); INR 0.94 (0.9-1.1); Prothrombin Time 11.1 seconds (9.4-11.8)
[2020-08-03 14:22] LABS: HIV Screen 4th Generation wRfx Non Reactive (Non Reactive)
[2020-08-03 14:23] LABS: Hepatitis B Surf Ab Quant >1000.0 mIU/mL (Immunity>9.9); Hepatitis B Surface Antigen Negative (Negative); Hepatitis C Antibody <0.1 s/co ratio (0.0-0.9)
== END 2020-08-02 13:00 | disposition home or self-care (01) ==
LOC: ER 12:41
PROVIDERS: Emergency Provider Emergency Medicine; PCP Family Medicine
DX: S61.211A Laceration without foreign body of left index finger without damage to nail, initial encounter (principal); W26.9XXA Contact with unspecified sharp object(s), initial encounter; Y92.69 Other specified industrial and construction area as the place of occurrence of the external cause; Y99.0 Civilian activity done for income or pay; Z88.1 Allergy status to other antibiotic agents; R03.0 Elevated blood-pressure reading, without diagnosis of hypertension
CPT/HCPCS: 12001; 80076; 85025; 85610; 85730; 86703; 86706; 87340; 87380; 99282; G0432

== ENCOUNTER → 2020-11-06 13:24 | Outpatient (POV) | payer OTHER, SELFPAY | PROVIDERS: Visit Provider Nurse Practitioner Family | DX: Z00.00 Encounter for general adult medical examination without abnormal findings (principal) ==

== ENCOUNTER → 2021-02-06 16:54 | Outpatient (CLI) | payer OTHER, SELFPAY ==
--- NOTE | 2021-02-06 16:57 | XR_ITS ---
PROCEDURE: XR HAND LT MIN 3V CLINICAL INDICATION: Pain COMPARISON: No exams were available for comparison FINDINGS: No fracture or dislocation. No lytic or blastic change. There is normal mineralization. The joint spaces are well-preserved. No significant degenerative/arthritic changes. No erosive changes evident. Other findings:None. IMPRESSION: No acute findings. Dictated by: Kenneth Melo MD 02/06/2021 17:16 Kenneth Melo MD in [facility] 02/06/2021 17:16
== END ==
PROVIDERS: PCP Family Medicine; Visit Provider Nurse Practitioner
DX: M79.642 Pain in left hand (principal)
CPT/HCPCS: 73130

== ENCOUNTER → 2021-02-15 15:13 | Outpatient (CLI) | payer OTHER, SELFPAY | PROVIDERS: PCP Family Medicine; Visit Provider Nurse Practitioner | DX: Z20.822 Contact with and (suspected) exposure to COVID-19 (principal) | CPT/HCPCS: C9803; U0003; U0005 ==

== ENCOUNTER → 2021-03-16 11:09 | Outpatient (CLI) | payer OTHER, SELFPAY ==
[2021-03-16 11:14] LABS: Coronavirus 19, PCR Not Detected (NotDetected); Influenza A, PCR Not Detected (NotDetected); Influenza B, PCR Not Detected (NotDetected)
== END ==
PROVIDERS: Visit Provider Physician Assistant
DX: Z20.822 Contact with and (suspected) exposure to COVID-19 (principal); J02.9 Acute pharyngitis, unspecified; R05.9 Cough, unspecified
CPT/HCPCS: C9803; U0003; U0005

== ENCOUNTER → 2021-03-18 11:24 | Outpatient (CLI) | payer OTHER, SELFPAY ==
[2021-03-18 11:37] LABS: Coronavirus 19, PCR Not Detected (NotDetected); Influenza A, PCR Not Detected (NotDetected); Influenza B, PCR Not Detected (NotDetected)
== END ==
PROVIDERS: PCP Internal Medicine Adolescent Medicine; Visit Provider Internal Medicine Adolescent Medicine
DX: Z20.822 Contact with and (suspected) exposure to COVID-19 (principal)
CPT/HCPCS: C9803; U0003; U0005

== ENCOUNTER → 2021-09-24 08:36 | Outpatient (CLI) | payer OTHER, SELFPAY ==
[2021-09-24 08:40] LABS: Influenza A, PCR Not Detected (NotDetected); Influenza B, PCR Not Detected (NotDetected)
[2021-09-24 08:52] LABS: Coronavirus 19, PCR Detected (NotDetected)
== END ==
PROVIDERS: Visit Provider Nurse Practitioner Family
DX: U07.1 COVID-19 (principal); R05.9 Cough, unspecified
CPT/HCPCS: C9803; U0003; U0005

== ENCOUNTER → 2021-10-10 14:44 | Outpatient (CLI) | payer OTHER, SELFPAY ==
--- NOTE | 2021-10-10 14:53 | XR_ITS ---
FINAL REPORT CLINICAL HISTORY: H/O COVID( dx 2 weeks ago, continued cough. COMPARISON: March 03, 2019 FINDINGS: Two views of the chest were obtained. The heart size and pulmonary vascularity are within normal limits. The mediastinum is normal. No acute pulmonary abnormality is identified. There is no pneumothorax. The bony thorax is intact. IMPRESSION: No active cardiopulmonary disease. Reviewed, Interpreted and Dictated by Smooth Wood III, MD Transcribed by Sylvia Garces Authenticated by Smooth Wood III, MD on 10/10/2021 03:44:10 PM [facility]
[2021-10-10 16:32] LABS: Basophils # 0.1 K/mm3 (0-0.2); Basophils % 0.7 % (0.1-2.0); Eosinophils # 0.1 K/mm3 (0.0-0.4); Eosinophils % 0.9 % (0.1-12.0); Hematocrit 44.4 % (37.0-47.0); Hemoglobin 14.7 g/dL (12.2-16.2); Lymphocytes # 2.1 K/mm3 (0.7-4.5); Lymphocytes % 23.3 % (10-50); Mean Corpuscular HGB Conc 33.1 g/dL (31.8-35.4); Mean Corpuscular Hemoglobin 31.5 pg (27.0-31.2); Mean Corpuscular Volume 95.2 fl (81-99); Mean Platelet Volume 8.7 fl (7.4-10.4); Monocytes # 0.5 K/mm3 (0.1-1.0); Monocytes % 5.6 % (1.7-9.3); Neutrophils # 6.2 K/mm3 (1.8-7.8); Neutrophils % 69.6 % (37.0-80.0); Platelet Count 302 K/mm3 (142-424); Red Blood Count 4.66 M/mm3 (4.20-5.40); White Blood Count 8.8 K/mm3 (4.8-10.8)
[2021-10-10 16:40] LABS: Alanine Aminotransferase 22 U/L (12-78); Albumin Level 4.4 g/dl (3.5-5.0); Albumin/Globulin Ratio 1.6 (1.1-1.8); Alkaline Phosphatase 105 U/L (38-126); Anion Gap 9.7 mEq/L (5-15); Aspartate Amino Transferase 29 U/L (14-36); Blood Urea Nitrogen 17 mg/dl (7-17); Calcium 9.4 mg/dl (8.4-10.2); Carbon Dioxide 29 mmol/L (22.0-30.0); Chloride 102 mmol/L (98-107); Estimated Glomerular Filt Rate 56 ml/min (>60); GFR (African American) 67 ML/MIN (>60); Globulin 2.7 g/dL (1.3-3.2); Glucose 81 mg/dl (74-100); Potassium 3.7 mmoL/L (3.5-5.1); Sodium 137 mmol/L (136-145); Total Protein,Serum 7.1 g/dl (6.3-8.2)
[2021-10-10 16:43] LABS: Bilirubin,Total 0.1 mg/dl (0.2-1.3)
== END ==
PROVIDERS: PCP Family Medicine; Visit Provider Family Medicine
DX: U09.9 Post COVID-19 condition, unspecified (principal); R05.9 Cough, unspecified
CPT/HCPCS: 36415; 71046; 80053; 85025

== ENCOUNTER → 2022-01-14 17:08 | Outpatient (CLI) | payer OTHER, SELFPAY ==
[2022-01-16 12:11] LABS: Estradiol 70.2 pg/mL (.); FSH 7.9 mIU/mL (.); LH 14.2 mIU/mL (.)
[2022-01-19 17:12] LABS: Testosterone,Free 0.5 pg/mL (0.0-4.2)
[2022-01-20 05:13] LABS: Anti Mullerian Hormone (AMH) 1.68 ng/mL (.)
== END ==
PROVIDERS: Nurse Practitioner Family; PCP Family Medicine; Visit Provider Nurse Practitioner Obstetrics & Gynecology
DX: N80.9 Endometriosis, unspecified (principal)
CPT/HCPCS: 82397; 82670; 83001; 83002; 84402

== ENCOUNTER 2023-11-10 15:53 | Outpatient (CLI) | payer OTHER, SELFPAY ==
--- NOTE | 2023-11-10 15:53 | US_ITS ---
FINAL REPORT CLINICAL HISTORY: sore throat/swollen nodes FINDINGS: Limited sonographic images of the right and left parotid glands were obtained. There is a 5 mm benign cystic lesion in the right parotid. There is a 6 mm left parotid nodule most suggestive of lymph node. Small benign-appearing lymph nodes in the bilateral submandibular regions. IMPRESSION: Benign-appearing lymph nodes. Salivary glands are unremarkable. Reviewed, Interpreted and Dictated by Narciso Gomes MD Transcribed by Cornelia Booth Authenticated and [facility]
== END 2023-11-10 23:59 | disposition home or self-care (01) ==
LOC: RAD 15:53
PROVIDERS: PCP Family Medicine; Visit Provider Nurse Practitioner
DX: R59.0 Localized enlarged lymph nodes (principal)
CPT/HCPCS: 76536

== ENCOUNTER 2024-07-21 08:33 | Outpatient (CLI) | payer OTHER, SELFPAY ==
[2024-07-21 10:02] LABS: Basophils % 0.3 % (0.1-2.0); Eosinophils # 0.1 K/mm3 (0.0-0.4); Hematocrit 43.6 % (37.0-47.0); Hemoglobin 14.3 g/dL (12.2-16.2); Lymphocytes # 1.6 K/mm3 (0.7-4.5); Mean Corpuscular HGB Conc 32.8 g/dL (31.8-35.4); Mean Corpuscular Hemoglobin 29.7 pg (27.0-31.2); Mean Corpuscular Volume 90.6 fl (81-99); Mean Platelet Volume 9.9 fl (7.4-10.4); Monocytes # 0.5 K/mm3 (0.1-1.0); Monocytes % 5.4 % (1.7-9.3); Neutrophils # 6.4 K/mm3 (1.8-7.8); Platelet Count 278 K/mm3 (142-424); Red Blood Count 4.81 M/mm3 (4.20-5.40); White Blood Count 8.6 K/mm3 (4.8-10.8)
[2024-07-21 10:20] LABS: Albumin Level 4.6 g/dl (3.5-5.0)
[2024-07-21 10:21] LABS: Chloride 102 mmol/L (98-107); Potassium 4.4 mmoL/L (3.5-5.1); Sodium 139 mmol/L (136-145)
[2024-07-21 10:23] LABS: Alanine Aminotransferase 23 U/L (12-78); Alkaline Phosphatase 95 U/L (38-126); Aspartate Amino Transferase 29 U/L (14-36); Bilirubin,Total 0.6 mg/dl (0.2-1.3); Blood Urea Nitrogen 18 mg/dl (7-17); Estimated Glomerular Filt Rate 61 ml/min (>60); GFR (African American) 74 ML/MIN (>60)
[2024-07-21 10:24] LABS: Albumin/Globulin Ratio 1.8 (1.1-1.8); Anion Gap 13.4 mEq/L (5-15); Calcium 9.5 mg/dl (8.4-10.2); Carbon Dioxide 28 mmol/L (22.0-30.0); Chol/HDL Ratio 2.2 (1-3.5); Cholesterol 121 mg/dl (140-200); Globulin 2.6 g/dL (1.3-3.2); Glucose 81 mg/dl (74-100); HDL Cholesterol 55 mg/dl (40-60); Iron 109 ug/dL (37-170); Total Protein,Serum 7.2 g/dl (6.3-8.2); Triglycerides 55 mg/dl (30-150); VLDL Cholesterol 11 mg/dL (0-40)
[2024-07-21 10:34] LABS: Total Iron Binding Capacity 331 ug/dL (265-497)
[2024-07-21 10:35] LABS: Direct LDL Cholesterol 43.14 mg/dL (100-129)
[2024-07-21 11:00] LABS: Ferritin 88.3 ng/ml (6.24-137)
[2024-07-21 12:05] LABS: Hemoglobin A1C 4.8 % (4.0-6.0)
== END 2024-07-21 23:59 | disposition home or self-care (01) ==
LOC: LAB.DROPOF 07-23 08:34
PROVIDERS: PCP Internal Medicine; Visit Provider Internal Medicine
DX: Z13.1 Encounter for screening for diabetes mellitus (principal); Z13.220 Encounter for screening for lipoid disorders; R53.83 Other fatigue
CPT/HCPCS: 80053; 80061; 82728; 83036; 83540; 83550; 85025

== ENCOUNTER 2024-12-20 11:54 | Outpatient (CLI) | payer OTHER, SELFPAY ==
[2024-12-20 13:36] LABS: Coronavirus 19, PCR Not Detected (NotDetected); Influenza A, PCR Not Detected (NotDetected); Influenza B, PCR Not Detected (NotDetected)
--- OUTSIDE RECORDS SUMMARY | 2024-12-21 15:29 | XMS_ITS | Encounter Summary ---
Author Organization [facility] yste Address [address] [place] [address] Care Team Providers Care Supervisor Cigar Processing Name Role Phone Trevin Harmon MD Primary Care Provider + [phone] Reason for Visit * Reason Comments Med Refill Encounter Details Date Type Department Care Team (Late st Contact Info) Description 03/08/2024 Refill [facility] [address] [id number] Hali Lazaro MD [address] [place] [id number] anxiety Social History Tobacco Use Types Packs/Day Years Used Date Smoking Tobacco: Never Smokeless Tobacco: Never Alcohol Use Standard Drinks/Week Comments Not Currently 0 (1 standard drink = 0.6 oz pur e alcohol) AUDIT-C Answer Date Recorded Q1: How often do you have a drink containing alcohol? Never 01/09/2023 Q2: How many drinks containi ng alcohol do you have on a typical day when you are drinking? Patient does not drink Q3: How often do you have si x or more drinks on one occasion? Never 01/09/2023 Overall Financial Resource Strain (CARDIA) Answe r Date Recorded How hard is it for you to pa y for the very basics like food, housing, medical care, and heating? Not hard at all 01/09/2023 PHQ-2 Answer Date Recorded Retired PHQ-9: Brief Depression Severity Measure Score 0 01/09/2023 Exercise Vital Sign Answer Date Recorde d On average, how many days pe r week do you engage in moderate to strenuous exercise (like a brisk walk)? 5 days 01/09/2023 On average, how many minutes do you engage in exercise at this level? 30 min 01/09/2023 Hunger Vital Sign Answer Date Recorded Within the past 12 months, y ou worried that your food would run out before you got the money to buy more. Never true 01/10/20 23 Within the past 12 months, t he food you bought just didn't last and you didn't have money to get more. Never true 01/09/2023 PRAPARE - Transportation Answer Date Re corded In the past 12 months, has l ack of transportation kept you from medical appointments or from getting medications? No 12/24 In the past 12 months, has l ack of transportation kept you from meetings, work, or from getting things needed for daily living? No 01/09/2023 [place]well Depression Scale Answer Date Recorded Retired [place] Depression Score 19 01/29/2023 Retired EPD Scale: Thought of Harming Self Unrec ognized value 01/29/2023 Abuse Screen Answer Date Recorded Feels Unsafe at Home or Work/School no 01/09/2023 Feels Threatened by Someone no 12/24 Does Anyone Try to Keep You From Having Contact with Others or Doing Things Outside Your Home? no 01/09/2023 Physical Signs of Abuse Present no 01/09/2023 Housing Stability Answer Date Recorded Current Living Arrangements home 12/24 Potentially Unsafe Housing Conditions none 01/09/2023 Family and Community Support Answer Mau e Recorded If for any reason you need h elp with day-to-day activities such as bathing, preparing meals, shopping, managing finances, etc., do you get the help you need? I don't need any help 01/09/2023 How often do you feel lonely or isolated from those around you? Never 01/09/2023 Employment Answer Date Recorded Do you want help finding or keeping work or a job? I do not need or want help 01/09/2023 Disabilities Answer Date Recorded Difficulty Concentrating, Remembering or Making Decisions no 01/09/2023 Difficulty Managing Errands Independently no 01/09/2023 Education Answer Date Recorded Do you want help with school or training? For example, starting or completing job training or getting a high school diploma, GED or equivalent No 01/09/2023 Preferred Language French 01/09/2023 PHQ-2 Answer Date Recorded Retired PHQ-9: Brief Depression Severity Measure Score 0 01/09/2023 Comments No Sex and Gender Information Value Date Recorded Sex Assigned at Not on file Legal Sex Female 3:47 PM EST Gender Identity Not on file Sexual Orientation Not on file documented as of this encounter Plan of Treatment Upcoming Encounters Date Type Department Care Team (Late st Contact Info) Description 04/13/2025 10:50 AM EST Office Visit [facility] [address] [place] [address] Hali Lazaro MD [address] [facility] [address] [place] [id number] documented as of this encounter Visit Diagnoses Diagnosis anxiety documented in this encounter Care Teams Supervisor Cigar Processing Relationship Specialty Start Date End Date Trevin Harmon MD [address] [facility] [address] [facility] [address] [place] [address] PCP - General Family Medicine 05/29/22 documented as of this encounter
--- OUTSIDE RECORDS SUMMARY | 2024-12-21 15:29 | XMS_ITS | Data Portability ---
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 Lab None recorded. Referral physical therapy shoulder referral 2017 018 [email or web address] Not available 03:33:05 Procedures None recorded. Surgeries None recorded. Imaging None recorded. Medication Orders tramadol 50 mg tablet 2017 018 [email or web address] [id number], [address] [place], [address], 2 03:32:42 diclofenac sodium 75 mg tablet,lisy yed release 2017 018 DBA_BACKF [id number], [address] [place], [address], 2 03:32:42 tramadol 50 mg tablet 2017 018 [email or web address] [id number], [address] [place] [address], [address], 03:32:42 Patient TargetsNo targets recorded. Patient Instructions Encounter Date Encounter Id Patient Instructions Last Modified By Organization Details Last Modified Time 02/25/2018 [id number] work status report* [email or web address] [id number] Not available 11/29/2021 03:32:59 Reason for Referral Referring Physician: Florina King, Orthopaedic Surgery - Hand, Encounter Date: 02/25/2018 Results Created Date Observation Date Name Description Value Unit Range Abnormal Flag Note LastModifiedBy Organization Detail LastModifiedTime 01/13/20 18 01/12/2018 rf lt shoul yancy st[facility] [address] [place] [address] Patishelli t Name: STACY aguiar : 983 Aixa aguiar 56 Orderi ng Provid er: PHILIP FOSS EXAM DATE: 2017 EXAM: RF LT SHOULD ER STEROI D INJECT ION HISTOR Y: Left should er pain. TECHNI QUE: The patien t was positi oned supine on the fluoro scopy table and an entry site was locali zed under fluoro scopic guidan ce. The skin was preppe d and draped in the usual steril e fashio n. 1% Lidoca ine was used to anesth etize the skin and subcut aneous tissue s. A 22-gau ge spinal needle was introd uced into the anteri or aspect of the glenoh umeral joint. The needle tip positi on within the glenoh umeral joint was confir med with 2 cc Isovue -300. Subseq uently , 2 cc dexame thason e (4 mg/mL) and 6cc bupiva beti 0.5% were introd uced into the joint. The needle was remove d in the patien t tolera bismark the proced ure well. 2ml of a 50ml vial of Isovue 300 was inject ed into the patien t. The remain ing 48ml of Isovue 300 was wasted and discar ded. [facility] [id number] [id number] [facility] [address]- [phone] [facility] [address]- 1610-5 0 IMPRES FABRICE: 1. The patien t is status post left should er arthro gram with dexame thason e and bupiva beti inject ion withou t compli cation . Interp reted By: Louis biswas MD Electr onical ly Signed By: Louis biswas MD on 018 3:17 PM [email or web address] [facility] Radiology [address], [address], 01/14/2018 12:48:34 Result Notes None recorded. Procedures Surgical History Date Name Laterality Status Provider Name and Address Organization Details Recorded Time Injection Trigger Finger Ortho completed NICK DE LA CRUZ MD [address] [place] [address], [id number] [place] [address] 02/16/2021 09:15:41 8 Op Note completed PHILIP FOSS MD [address] [place] [id number] 02/12/2018 13:36:24 Imaging Results None recorded. Procedure Notes None recorded. Medical Equipment None Reported. Allergies Allergen ID Allergen Name Allergen Category Reaction Reaction Severity Criticality Documentation Date Start Date Code Code System Note Provider Name and Address Organization Details Recorded Time 922147 Cephalosp robert (substanc e) medicatio n Not available Not available Not available 01/07/2018 15110 7003 SNOMED Kimberly Boyd [facility] 8 08:33:23 Medications Name Sig Start Date Stop Date Status Note LastModified by Organization Details LastModified Time Compound Magic Mouthwash (Rad Onc aka Jessy's Magic Potion) (Diphenhydram ine 12.5 mg/5 mL 240 mL; Hydrocortison e 60 mg; Nystatin Powder 6 million units; Tetracycline 1.5 gm) swish and gargle 5 cc twice a day 2023 active Not Available Not Available Not Avai lable Medrol (Jerome) 4 mg tablets in a dose pack Take 1 dose pk by oral route. 02/25 completed Not Available Not Available Not Available tramadol 50 mg tablet 02/16 completed Not Available Not Available Not Available diclofenac sodium 75 mg tablet,delaye d release TAKE 1 TABLET BY MOUTH TWICE A DAY NEEDED 02/16 completed Not Available Not Available Not Available Percocet 5 mg-325 mg tablet 1-2 PO Q4-6 hours PRN Post-Op Pain 02/16 completed Not Available Not Available Not Available Wellbutrin SR active Not Available Not Available Not Available Vitamin 01/07 completed Not Available Not Available Not Available Adderall active Not Available Not Avai lable Not Available Multi Vitamin active Not Available Not Available Not Available Vitals Date Recorded Body height Body mass index (BMI) Body weight Provider Name and Address Organization Details Last Updated DateTime 02/16/2021 175.26 cm 22.9 kg/m2 02075.82 g Liz Fisher [facility] 02/16/2021 09:02:15 Date Recorded Body mass index (BMI) Body weight Provider Name and Address Organization Details Last Updated DateTime 02/25/2018 23.3 kg/m2 80873.59 g FLORINA KING PA-C [address] [place], [address], [facility] 02/25/2018 11:57:29 Date Recorded Body height Systolic And Diastolic Provider Name and Address Organization Details Last Updated DateTime 02/25/2018 175.26 cm 122/78 mm[Hg] Alyce Hogue [facility] 02/25/2018 11:20:10 Date Recorded Body height Body mass index (BMI) Body weight Systolic And Diastolic Provider Name and Address Organization Details Last Updated DateTime 03/25/2018 175.26 cm 23.3 kg/m2 99573.59 g 131/92 mm[Hg] Kimberly Boyd [facility] 03/25/2018 11:50:05 Date Recorded Body height Body mass index (BMI) Body weight Systolic And Diastolic Provider Name and Address Organization Details Last Updated DateTime 04/30/2018 175.26 cm 23.3 kg/m2 61848.59 g 130/79 mm[Hg] Kimberly Boyd [facility] 04/30/2018 08:18:31 Social History Question Answer Notes LastModified by Organizat ion Details LastModified Time Tobacco Smoking Status Never Smoker Kimberly Boyd [facility] 01/07/2018 08:29:24 What Was The Date Of Your Most Recent Tobacco Screening? 04/30/2018 Information n ot available 07/13/2019 Sex: Unknown Functional Status None recorded. Mental Status None recorded. Family History Nothing Reported. Medical History Condition Response High Cholesterol N Hernia N Anesthesia Complications N Liver Disease N Migraines N COPD N Asthma N Pneumonia N Kidney Disease N Gynecological HistoryNo gynecological history recorded. Obstetrics History GPAL:G 0 P 0 0 0 0 Past Encounters Encounter ID Performer Location Encounter Start Date Encounter Closed Date Diagnosis/Indication Diagnosis SNOMED-CT Code Diagnosis ICD10 Code Diagnosis Note [id number] PHILIP FOSS MD [facility] [address] [place] [address] 01/07/2018 08:22:04 01/07/2018 09:24:31 Glenoid labrum tear 790415625 S43.432A my suspicion is and anterior subluxatio n of the humeral head associated with the sudden traction injury. Possible superior and anterior glenoid labral tear. Accompanyi ng synovitis. I think there is a good prognosis with conservati ve measures. We'll try to get the inflammati on under control and work on some glenohumer al stabilizat ion. We'll see how she responds over the next several weeks. [id number] PHILIP FOSS MD [facility] [address] [place] [address] 01/28/2018 09:28:54 01/28/2018 10:32:33 Injury of superior glenoid labrum of shoulder joint 008835622 S49.92XA Long discussion today; she feels that she is not improving and has structural anterior pain we discussed more time and PT however she would like to proceed with; Scope labral repair, possible BTD R/B/A [id number] PHILIP FOSS MD SURGERY SCHEDULE [address] [place] [address] 02/12/2018 06:13:02 02/12/2018 06:15:23 [id number] FLORINA KING PA-C [facility] [address] [place] [address] 02/25/2018 11:15:09 02/25/2018 13:23:04 Postoperative care [id number] Z48.89 Doing well 2 wks s/p left shoulder arthroscop y with Anterior labral repair and Debridemen t of synovitis in the rotator interval HEP discussed, PT referral provided Counselled on precaution s at length RTO as scheduled or sooner if needed, advised to call office with any questions/ concerns. 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 We discussed daily demands of job at length. OK to begin small in office procedures . I do not recommend returning to the OR for surgical procedures until she has regained full arc of motion and strength. 4 wk recheck. RTO as scheduled or sooner if needed, advised to call office with any questions/ concerns. [id number] PHILIP FOSS MD [facility] [address] [place] [address] 04/30/2018 08:12:55 05/04/2018 09:28:02 Postoperative care 981623600 Z48.89 she is off to a great start. I have recommende d some continued functional strengthen ing. Some terminal stretching for rotation. Full release to work with no restrictio ns. She'll follow up as needed but call with any problems. [id number] NICK DE LA CRUZ MD [facility] [address] [place] [address] 02/16/2021 08:49:00 02/16/2021 09:26:05 Trigger finger of left hand [id number] M65.30 Left long finger, injection, follow-up as needed or call to schedule release Health Concerns Section Related Observation LastModified by Organization Detai ls LastModified Time None Recorded Concern Status LastModified by Organization Details LastModified Time None Recorded Advance Directives Directive None Recorded Payers Insurance Date Sequence Insurance Name Policy Number Policy Snow Covered Member ID Snow Member ID Guarantor Name 02/15/2021 1 [facility] [id number] Stacy Chu [id number] Stacy Chu OBGyn Episode No OBEpisode recorded.
--- OUTSIDE RECORDS SUMMARY | 2024-12-21 15:30 | XMS_ITS | Clinical Summary ---
[facility] Organization [facility] Address [address] [place] [address] Care Team Providers Care Electrostatic Paint Operator Name Role Phone Trevin Harmon MD Primary Care Provider + [phone] Allergies Active Allergy Reactions Criticality Noted Date Comments Cephalosporins Hives High 06/19/2022 Medications busPIRone (BUSPAR) 5 MG tabletIndicatio ns: anxiety Take 1 tablet by mouth 3 (Three) Times a Day. 90 tablet 5 4 Active amphetamine-dex troamphetamine (ADDERALL) 20 MG tablet TAKE 1 TABLET BY MOUTH TWICE A DAY - ADMINISTER DOSES AT LEAST 4-6 HOURS APART 4 Active buPROPion XL (WELLBUTRIN XL) 300 MG 24 hr tablet 4 Active Active Problems No known active problems Resolved Problems Problem Noted Date Diagnosed Date Resolved Date Currently 01/09/2023 3 Normal labor 01/09/2023 01/11/2023 Excessive growth affec ting management of in third trimester 12/27/2022 02/21/20 23 Assessment & Plan (12/27/2022 2:06 PM EDT): EFW measures at the 80th percentile. AC measures at the 98th percentile. There is a normal amount of amniotic fluid. Placenta is anterior. BPP is 8/8. UA Dopplers are normal Primigravida of advanced mat ernal age in second trimester 09/19/2022 09/19/2022 Advanced maternal age, primi , antepartum 06/19/2022 02/20/2023 Overview (01/01/2023): cfDNA low risk, AFP neg PDC sagrario US, 32 WKS efw 78%ile with AC 99%ile, has FU 36wks 80%ile with AC 98%ile Baby asa 06/19/2022 02/20/2023 Immunizations Immunization Administration Dates Next Due COVID-19 (MODERNA) 1st,2nd,3 rd Dose Monovalent 03/27/2021,06/15/2020,05/17/2020 Hepatitis A 07/22/2018 Td, Not Adsorbed 07/22/2018 Tdap 10/16/2022 Family History Medical History Relation Name Comments Hypertension Father Chris Cotton Breast cancer Maternal Aunt Radha Khalil Diabetes Maternal Grandmother Mily De La Cruz Cirrhosis Mother Eusebio Lula Diabetes Mother Eusebio Monetta Hyperlipidemia Mother Eusebio Monetta Hypertension Mother Eusebio Cotton Relation Name Status Comments Father Chris Cotton Maternal Aunt Radha Khalil Maternal Grandmother Mily De La Cruz Mother Eusebio Cotton Social History Tobacco Use Types Packs/Day Years Used Date Smoking Tobacco: Never Smokeless Tobacco: Never Tobacco Cessation:Counseling Given: Not Answered Alcohol Use Standard Drinks/Week Comments Not Currently [...] things needed for daily living? No 01/09/2023 [place] Depression Scale Answer Date Recorded Retired [place] Depression Score 19 01/29/2023 Retired EPD Scale: [...] GED or equivalent No 01/09/2023 Preferred Language Malaysian 01/09/2023 PHQ-2 Answer Date Recorded Retired PHQ-9: Brief Depression Severity Measure Score 0 01/09/2023 Comments No Sex and Gender Information Value Date Recorded Sex Assigned at Not on file Legal Sex Female 3:47 PM EST Gender Identity Not on file Sexual Orientation Not on file Last Filed Vital Signs Vital Sign Reading Time Taken Comments Blood Pressure 130/90 07/14/2024 8:12 AM EST Pulse 76 01/11/2023 7:20 AM EDT Temperature 36.8 C (98.2 F) 01/11/2023 7:20 AM EDT Respiratory Rate 16 01/11/2023 7:20 AM EDT Oxygen Saturation 100% 01/09/2023 6:53 AM EDT Inhaled Oxygen Concentration - - Weight 76.7 kg (169 lb) 07/14/2024 8:12 AM EST Height 69 cm (2' 3.17 ) 07/14/2024 8:12 AM EST Body Mass Index 160.92 07/14/2024 8:12 AM EST Plan of Treatment Upcoming Encounters Date Type Department Care Team (Late st Contact Info) Description 04/13/2025 10:50 AM EST Office Visit [facility] OBGYN [address] [place] [address] Hali Lazaro MD [address] [address] Health Maintenance Due Date Last Done Comments Annual Breast MRI 1982 PAP SMEAR 12/06/2003 ANNUAL PHYSICAL 05/29/2022 COVID-19 Vaccine (2023- season) 2024 03/27/2021, 06/15/2020, 05/17/2020 INFLUENZA VACCINE 02/23/2025 Annual Gynecologic Pelvic and Breast Exam 04/08/2025 04/07/2024 MAMMOGRAM TCS >= 20 05/14/2025 05/14/2024 TDAP/TD VACCINES (2 - Td or Tdap) 10/16/2032 10/16/2022, 07/22/2018 HEPATITIS C SCREENING Completed 06/19/2022 MAMMOGRAM Discontinued 05/14/2024 Pneumococcal Vaccine 0-49 Aged Out No longer eligible based on patient's age to complete this topic Procedures Procedure Name Priority Date/Time Associated Diagnosis Comments MAMMO SCREENING DIGITAL TOMOSYNTHESIS BILATERAL W CAD Routine 05/14/2024 9:35 AM EST Visit for screening mammogram OBSTETRIC PANEL Routine 06/19/2022 2:57 PM EST care, first trimester from Last 3 Months or Most Recently Relevant to Health Maintenance Results * Mammo Screening Digital Tomosynthesis Bilateral With CAD (05/14/2024 9:35 AM EST) Anatomical Region Laterality Modality Breast N/A Mammography 05/25/2024 1:39 PM EST Impressions 05/25/2024 1:41 PM EST No findings suspicious for malignancy. ACR BI-RADS CATEGORY: 1, NEGATIVE RECOMMENDATION: Yearly mammogram, yearly clinical breast exam, and encourage self breast awareness. As the patient's calculated lifetime risk of breast cancer is 22.7% as she qualifies for annual high risk screening with breast MRI. Genetic counseling if not already performed. CAD was used. The standard false negative rate of mammography is between 10% and 25%. Complex patterns or increased breast density will markedly elevate the false negative rate of mammography. A letter, in lay terminology, with the results of this exam will be mailed to the patient. If there is a palpable area of concern, biopsy should be considered regardless of imaging findings. This report was finalized on 05/25/2024 1:41 PM by Ines Hogue MD. Narrative 05/25/2024 1:41 PM EST ROUTINE DIGITAL SCREENING MAMMOGRAM WITH TOMOSYNTHESIS HISTORY: Routine screening. IMAGE COMPARISON: 2019. TECHNIQUE: Low dose full field digital breast tomosynthesis imaging was performed with 2D and 3D acquisitions consisting of bilateral CC and MLO views. FINDINGS: There are scattered fibroglandular densities. The fibroglandular pattern appears stable. There is no mass, worrisome microcalcifications, or architectural distortion to suggest development of malignancy. Hali Lazaro MD IM MAMMOGRAPHY ORDERABLES Final Result * (ABNORMAL) Obstetric Panel (06/19/2022 2:57 PM EST) Hepatitis B Surface Ag Negative Negative [facility] Hep C Virus Ab <0.1 0.0 - 0.9 s/co ratio [facility] Comment: Negative: < 0.8 Indeterminate: 0.8 - 0.9 Positive: > 0.9 HCV antibody alone does not differentiate between previous resolved infection and active infection. The CDC and current clinical guidelines recommend that a positive HCV antibody result be followed up with an HCV RNA test to support the diagnosis of acute HCV infection. [facility] offers Hepatitis C Virus (HCV) RNA, Diagnosis, ANAMIKA (336273) and Hepatitis C Virus (HCV) Antibody with reflex to Quantitative Real-time PCR (362705). RPR Non Reactive Non Reactive [facility] Rubella Antibodies, IgG 4.94 Immune >0.99 index [facility] Comment: Non-immune <0.90 Equivocal 0.90 - 0.99 Immune >0.99 ABO Type B [facility] Rh Factor Positive [facility] Comment: Please note: Prior records for this patient's ABO / Rh type are not available for additional verification. Antibody Screen Negative Negative [facility] WBC 10.3 3.4 - 10.8 x10E3/uL [facility] RBC 4.15 3.77 - 5.28 x10E6/uL [facility] Hemoglobin 12.4 11.1 - 15.9 g/dL [facility] Hematocrit 37.6 34.0 - 46.6 % [facility] MCV 91 79 - 97 fL [facility] MCH 29.9 26.6 - 33.0 pg [facility] MCHC 33.0 31.5 - 35.7 g/dL [facility] RDW 11.4(L) 11.7 - 15.4 % [facility] Platelets 267 150 - 450 x10E3/uL [facility] Neutrophil Rel % 78 Not Estab. % [facility] Lymphocyte Rel % 15 Not Estab. % [facility] Monocyte Rel % 6 Not Estab. % [facility] Eosinophil Rel % 1 Not Estab. % [facility] Basophil Rel % 0 Not Estab. % [facility] Neutrophils Absolute 8.0(H) 1.4 - 7.0 x10E3/uL [facility] Lymphocytes Absolute 1.6 0.7 - 3.1 x10E3/uL [facility] Monocytes Absolute 0.6 0.1 - 0.9 x10E3/uL [facility] Eosinophils Absolute 0.1 0.0 - 0.4 x10E3/uL [facility] Basophils Absolute 0.0 0.0 - 0.2 x10E3/uL [facility] Immature Granulocyte Rel % 0 Not Estab. % [facility] Immature Grans Absolute 0.0 0.0 - 0.1 x10E3/uL [facility] Blood 06/19/2022 2:57 PM EST 06/19/2022 Narrative [facility] - 06/22/2022 6:09 AM EST Performed at: - [facility] [place] [address] [place] [address] [id number] Brush Finisher: Noe Pineda PhD, Phone: [phone] Patient Fasting: N us Dian Clayton [employer] LAB BLOOD ORDERABLES Final Re sult Performing Organization Address City/State/[facility] Co de Phone Number [facility] [address] [place] [address], [place] [phone] [facility] [address] [place] [address], [place] [phone] from Last 3 Months or Most Recently Relevant to Health Maintenance Insurance Advance Directives * CPR (Attempt to Resuscitate) (Latest Code Status on File) Date Activated Date Inactivated Comments 01/09/2023 4:34 PM 01/11/2023 5:55 PM Question Answer Comments Code Status (Patient has no pulse and is not breathing): CPR (Attempt to Resuscitate) Medical Interventions (Patie nt has pulse or is breathing): Full * CPR (Attempt to Resuscitate) Date Activated Date Inactivated Comments 01/09/2023 7:38 AM 01/09/2023 4:34 PM Question Answer Comments Code Status (Patient has no pulse and is not breathing): CPR (Attempt to Resuscitate) Medical Interventions (Patie nt has pulse or is breathing): Full Support Level Of Support Discussed With: Patient Care Teams Electrostatic Paint Operator Relationship Specialty Start Date End Date Trevin Harmon MD [address] [facility] [address] [facility] [address] [place] [address] PCP - General Family Medicine 05/29/22
--- OUTSIDE RECORDS SUMMARY | 2024-12-21 15:30 | XMS_ITS | Encounter Summary ---
Author Organization [facility] yste Address [address] [place] [address] Care Team Providers Care Career And Technology Education Teacher Name Role Phone Trevin Harmon MD Primary Care Provider + [phone] Reason for Visit * Reason Comments Med Refill Encounter Details Date Type Department Care Team (Late st Contact Info) Description 09/05/2023 Refill [facility] OBGYN [address] [address] Hali Lazaro MD [address] [place] [address] anxiety Social History Tobacco Use Types Packs/Day [...] things needed for daily living? No 01/09/2023 [place] Depression Scale Answer Date Recorded Retired [place] Depression Score 19 01/29/2023 Retired EPD Scale: [...] GED or equivalent No 01/09/2023 Preferred Language Nigerian 01/09/2023 PHQ-2 Answer Date Recorded Retired PHQ-9: Brief Depression Severity Measure Score 0 01/09/2023 Comments No Sex and Gender Information Value Date Recorded Sex Assigned at Not on file Legal Sex Female 3:47 PM EST Gender Identity Not on file Sexual Orientation Not on file documented as of this encounter Miscellaneous Notes * Telephone Encounter - Nicol Brown MA - 09/08/2023 12:57 PM EDT Refill sent annual in March 2024 documented in this encounter Plan of Treatment Upcoming Encounters Date Type Department Care Team (Late st Contact Info) Description 04/13/2025 10:50 AM EST Office Visit [facility] OBGYN [address] [place] [address] Hali Lazaro MD [address] [facility] [address] [place] [address] documented as of this encounter Visit Diagnoses Diagnosis anxiety documented in this encounter Care Teams Career And Technology Education Teacher Relationship Specialty Start Date End Date Trevin Harmon MD [address] [facility] [address] [place] [address] PCP - General Family Medicine 05/29/22 documented as of this encounter
== END 2024-12-20 23:59 | disposition home or self-care (01) ==
LOC: LAB.DROPOF 12-21 15:28
PROVIDERS: PCP Nurse Practitioner Family; Visit Provider Nurse Practitioner Family
DX: J02.9 Acute pharyngitis, unspecified (principal); R05.9 Cough, unspecified
CPT/HCPCS: 87631

== ENCOUNTER 2024-12-27 16:27 | Outpatient (CLI) | payer OTHER, SELFPAY ==
--- OUTSIDE RECORDS SUMMARY | 2024-12-27 16:30 | XMS_ITS | Encounter Summary ---
Author Organization [facility] yste Address [address] [place] [address] Care Team Providers Care Western Philosophy Professor Name Role Phone Trevin Harmon MD Primary Care Provider + [phone] Reason for Visit * Reason Comments Med Refill Encounter Details Date Type Department Care Team (Late st Contact Info) Description 09/05/2023 Refill [facility] OBGYN [address] [address] Hali Lazaro MD [address] [place] [address] anxiety Social History Tobacco Use Types Packs/Day [...] things needed for daily living? No 01/09/2023 [place] Depression Scale Answer Date Recorded Retired [place] Depression Score 19 01/29/2023 Retired EPD Scale: [...] GED or equivalent No 01/09/2023 Preferred Language Comoran 01/09/2023 PHQ-2 Answer Date Recorded Retired PHQ-9: [...] Description 04/13/2025 10:50 AM EST Office Visit [facility] O[facility]YN [address] [place] [address] Hali Lazaro MD [address] [facility] [address] [place] [address] documented as of this encounter Visit Diagnoses Diagnosis anxiety documented in this encounter Care Teams Western Philosophy Professor Relationship Specialty Start Date End Date Trevin Harmon MD [address] [facility] [address] [place] [address] PCP - General Family Medicine 05/29/22 documented as of this encounter
--- OUTSIDE RECORDS SUMMARY | 2024-12-27 16:30 | XMS_ITS | Encounter Summary ---
Author Organization [facility] yste Address [address] [place] [address] Care Team Providers Care City Assessor Name Role Phone Trevin Harmon MD Primary Care Provider + [phone] Reason for Visit * Reason Comments Med Refill Encounter Details Date Type Department Care Team (Late st Contact Info) Description 03/08/2024 Refill [facility] OBGYN [address] [id number] Hali Lazaro MD [address] [place] [address] anxiety Social History Tobacco Use Types Packs/Day [...] things needed for daily living? No 01/09/2023 Archer Depression Scale Answer Date Recorded Retired Archer Depression Score 19 01/29/2023 Retired EPD Scale: [...] GED or equivalent No 01/09/2023 Preferred Language Syrian 01/09/2023 PHQ-2 Answer Date Recorded Retired PHQ-9: [...] Description 04/13/2025 10:50 AM EST Office Visit [facility] OBGYN [address] [place] [address] Hali Lazaro MD [address] [facility] [address] [place] [id number] documented as of this encounter Visit Diagnoses Diagnosis anxiety documented in this encounter Care Teams City Assessor Relationship Specialty Start Date End Date Trevin Harmon MD [address] [facility] [address] [facility] [address] [place] [address] PCP - General Family Medicine 05/29/22 documented as of this encounter
--- OUTSIDE RECORDS SUMMARY | 2024-12-27 16:30 | XMS_ITS | Clinical Summary ---
Author Organization [facility] Address [address] [place] [address] Care Team Providers Care Monorail Car Operator Name Role Phone Trevin Harmon MD Primary Care Provider + [phone] Allergies Active Allergy Reactions Criticality Noted Date [...] Mily De La Cruz Cirrhosis Mother Eusebio [place] Diabetes Mother Eusebio Lula Hyperlipidemia Mother Eusebio [place] Hypertension Mother Eusebio Cotton Relation Name Status [...] things needed for daily living? No 01/09/2023 [place] Depression Scale Answer Date Recorded Retired [place] Depression Score 19 01/29/2023 Retired EPD Scale: [...] GED or equivalent No 01/09/2023 Preferred Language Zimbabwean 01/09/2023 PHQ-2 Answer Date Recorded Retired PHQ-9: [...] Description 04/13/2025 10:50 AM EST Office Visit [facility] OBGYN [address] [place] [address] Hali Lazaro MD [address] [address] Health Maintenance Due Date Last Done Comments Annual Breast MRI 1982 PAP SMEAR 12/06/2003 ANNUAL PHYSICAL 05/29/2022 COVID-19 Vaccine ( season) 2024 03/27/2021, 06/15/2020, 05/17/2020 INFLUENZA VACCINE 02/23/2025 Annual Gynecologic Pelvic and Breast Exam 04/08/2025 04/07/2024 MAMMOGRAM TCS >= 20 05/14/2025 05/14/2024 TDAP/TD VACCINES (2 - Td or Tdap) 10/16/2032 10/16/2022, 07/22/2018 HEPATITIS C SCREENING Completed 06/19/2022 MAMMOGRAM Discontinued 05/14/2024, 07/15/2018 Pneumococcal Vaccine 0-49 Aged Out No longer [...] WITH TOMOSYNTHESIS HISTORY: Routine screening. IMAGE COMPARISON: 2018. TECHNIQUE: Low dose full field digital breast [...] Hepatitis C Virus (HCV) RNA, Diagnosis, ANAMIKA ([id number]) and Hepatitis C Virus (HCV) Antibody with reflex to Quantitative Real-time PCR ([id number]). RPR Non Reactive Non Reactive [facility] [...] 6:09 AM EST Performed at: - [facility] [address] [place] [id number] Ladies' Hat Trimmer: Noe Pineda PhD, Phone: [phone] Patient Fasting: N us Dian Clayton AGRICULTURE TEACHER LAB BLOOD ORDERABLES Final Re sult [facility] [address] [address] [facility] (AMBULATORY) [address] [place] [address], [facility] [address] [place] [address], from Last 3 Months or Most Recently Relevant to Health Maintenance Insurance [facility] Advance Directives * CPR (Attempt to Resuscitate) [...] Of Support Discussed With: Patient Care Teams Monorail Car Operator Relationship Specialty Start Date End Date Trevin Harmon MD [address] [facility] [address] [facility] [address] [place] [address] PCP - General Family Medicine 05/29/22
--- NOTE | 2024-12-27 16:33 | XR_ITS ---
PROCEDURE INFORMATION: Exam: XR Chest Exam date and time: 12/27/2024 4:35 PM Age: 44 years old Clinical indication: Cough and shortness of breath; Additional info: SOB TECHNIQUE: Imaging protocol: Radiologic exam of the chest. Views: 2 views. COMPARISON: CR XR CHEST 2V 10/10/2021 2:59 PM FINDINGS: Lungs: Unremarkable. No consolidation. Pleural spaces: Unremarkable. No pleural effusion. No pneumothorax. Heart/Mediastinum: Unremarkable. No cardiomegaly. Bones/joints: Unremarkable. IMPRESSION: No acute findings.
== END 2024-12-27 23:59 | disposition home or self-care (01) ==
LOC: RAD 16:28
PROVIDERS: PCP Internal Medicine; Visit Provider Internal Medicine Pulmonary Disease
DX: R06.02 Shortness of breath (principal); R05.9 Cough, unspecified
CPT/HCPCS: 71046

== ENCOUNTER 2025-05-03 11:52 | Emergency (ER) | payer OTHER, SELFPAY ==
--- NOTE | 2025-05-03 12:03 | HMH.EDGENADL ---
Discharge Plan Disposition Patient Disposition: Home, Self-Care Condition: Good Prescriptions Prescriptions: New bacitracin 500 unit/gram ointment 1 applic topical DAILY Qty: 14 0RF sulfamethoxazole-trimethoprim 800-160 mg tablet 1 tab PO BID 5 Days Qty: 10 0RF No Action Kyleena 17.5 mcg/24 hr (5 years) intrauterine device 17.5 mcg INTRAUTERI ONCE Qty: 1 0RF levocetirizine 5 mg tablet 5 mg PO DAILY PRN cyclobenzaprine 5 mg tablet 10 mg PO Q8H PRN (Reason: muscle relaxant) Qty: 30 2RF Rx Instructions: may take 1-2 tabs every 8 hours as needed pain and spasms azithromycin 250 mg tablet See Rx Instructions PO .COMPLEX Qty: 6 0RF Rx Instructions: For 250 mg dose pack: take 500 mg today (day 1), then 250 mg for 4 days (days 2-5) PO hsuucsxyzbjnqcz-wjyfocbpn-CI [Bromfed DM] 2-30-10 mg/5 mL syrup 10 ml PO .Q12 PRN (Reason: cold symptoms) 10 Days Qty: 200 0RF albuterol sulfate [Ventolin HFA] 90 mcg/actuation HFA aerosol inhaler 2 puff inhalation Q4-6H PRN (Reason: shortness of breath or wheezing) Qty: 8.5 0RF bupropion HCl 300 mg tablet extended release 24 hr See Rx Instructions .ROUTE .COMPLEX Qty: 90 3RF Dose Instruction: TAKE 1 TABLET BY MOUTH EVERY DAY Rx Instructions: TAKE 1 TABLET BY MOUTH EVERY DAY buspirone 5 mg tablet See Rx Instructions .ROUTE .COMPLEX Qty: 180 3RF Dose Instruction: TAKE 1 TABLET BY MOUTH TWICE A DAY Rx Instructions: TAKE 1 TABLET BY MOUTH TWICE A DAY dextroamphetamine-amphetamine [Adderall] 20 mg tablet 20 mg PO BID Qty: 60 0RF Rx Instructions: administer doses at least 4-6 hours apart prednisone 20 mg tablet 20 mg PO BID 14 Days Qty: 28 1RF amoxicillin 250 mg capsule 500 mg PO BID 14 Days Qty: 56 0RF ipratropium-albuterol 0.5 mg-3 mg(2.5 mg base)/3 mL solution for nebulization 3 ml inhalation Q6-8H PRN (Reason: shortness of breath or wheezing) Qty: 180 0RF Referrals Follow up/Referrals: Dejon Mina DO [Primary Care Provider, Family Practice] - See instructions Activity Restrictions/Add. Instructions Additional Instructions/Restrictions: It is critically important that you follow-up on your patient's titers results. You must begin postexposure prophylaxis within 72 hours. If you do not have the results of the titers within the next 48 hours, you would begin the postexposure prophylaxis regimen. Keep wound clean and dry. Please follow up with your primary care provider in 2-3 days. Please return to ED if your symptoms worsen, change in location, change in severity, new symptoms develop or if you become concerned for your health. Clinical Impressions Clinical Impression: Occupational exposure in workplace, Laceration of thumb Instructions Patient Instructions: DI for Laceration Repair Print Language Print Language: Japanese Discharge ED Provider: Roosevelt Wisdom Adult HPI General Chief complaint: Wound/Laceration Stated complaint: exposure- scapel Time Seen by Provider: 05/03/25 12:02 History of Present Illness HPI narrative: Patient is a 44-year-old female with no significant past medical history presenting today after an occupational exposure. 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 She was debriding a diabetic foot ulcer with a 15 blade scalpel when she tried to catch the scalpel as it was falling and it grazed her left thumb. She reports it bled somewhat initially. She immediately thoroughly irrigated the wound and applied Betadine. She asked the patient if the patient had known HIV or hep B positivity to which patient said that he does not. And exhibited no high risk activities for such. Patient denies any numbness weakness tingling fevers or trauma anywhere else. Related Data Home Medications ?Medication ?Instructions ?Recorded ?Confirmed levocetirizine 5 mg tablet 5 mg PO DAILY PRN 07/21/24 12/20/24 Previous Rx's ?Medication ?Instructions ?Recorded cyclobenzaprine 5 mg tablet 10 mg (2 x 5 mg) PO Q8H PRN muscle 09/23/24 relaxant #30 tabs albuterol sulfate 90 mcg/actuation 2 puff inhalation Q4-6H PRN 12/22/24 aerosol inhaler (Ventolin HFA) shortness of breath or wheezing #8.5 grams azithromycin 250 mg tablet See Rx Instructions PO .COMPLEX #6 12/22/24 tabs spdhtlqlurcaocb-ooppptrxiwbwcdn-UP 10 ml PO .Q12 PRN cold symptoms 10 12/22/24 2 mg-30 mg-10 mg/5 mL oral syrup days #200 mL (Bromfed DM) bupropion HCl 300 mg 24 hr tablet, See Rx Instructions .Route 01/18/25 extended release .COMPLEX #90 tabs buspirone 5 mg tablet See Rx Instructions .Route 01/24/25 .COMPLEX #180 tabs dextroamphetamine-amphetamine 20 20 mg PO BID #60 tabs 04/13/25 mg tablet (Adderall) amoxicillin 250 mg capsule 500 mg (2 x 250 mg) PO BID 14 days 04/18/25 #56 caps prednisone 20 mg tablet 20 mg PO BID 14 days #28 tabs 04/18/25 ipratropium 0.5 mg-albuterol 3 mg 3 ml inhalation Q6-8H PRN 04/25/25 (2.5 mg base)/3 mL nebulization shortness of breath or wheezing soln #180 mL bacitracin 500 unit/gram topical 1 applic topical DAILY #14 grams 05/03/25 ointment sulfamethoxazole 800 1 tab PO BID 5 days #10 tabs 05/03/25 mg-trimethoprim 160 mg tablet Allergies Allergy/AdvReac Type Severity Reaction Status Date / Time Cephalosporins Allergy Mild rash, hives Verified 12/20/24 12:00 [facility] Disclaimer: The information contained in this section may have been updated after the patient was seen, as this information can be updated by other users. Medical History (Updated 05/03/25 @ 12:46 by Roosevelt Wisdom MD) SLAP lesion of left shoulder Sore throat Pain with swallowing Cervical lymphadenopathy Attention deficit disorder (ADD) in adult Surgical History (Updated 07/21/24 @ 08:40 by Floresita Gomez CMA) History of colonoscopy H/O shoulder surgery Family History (Updated 07/21/24 @ 08:41 by Floresita Gomez CMA) Mother Diabetes Hypertension Grandmother Cancer Diabetes Grandfather Cancer Diabetes Social History (Updated 07/21/24 @ 08:41 by Floresita Gomez CMA) Smoking Status: Never smoker second hand exposure: No alcohol intake: current alcohol intake frequency: holidays/special occasions only substance use type: denies use current occupational status: employed Travel in the last 8 weeks?: None housing: house 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 current occupational exposures/hazards: No caffeine: Yes Have you lived/traveled outside US in past 30 days?: No Contact w/someone who lives/traveled outside US past 30 days?: No Exposure to someone with infectious disease in past 14 days?: No Do you have a fever (greater than 100.4 F or 38 C)?: No Have you tested positive for COVID-19?: No Exposed to someone with COVID-19 in past 14 days?: No Do you have a sore throat?: No Do you have a cough?: No Do you have any weakness?: No Do you have any diarrhea?: No Are you experiencing any unusual bleeding?: No Do you have any muscle aches/pain?: No Do you have any abdominal pain?: No Are you experiencing loss of taste or smell?: No Other Medical History Have you received the Flu Vaccine for this season: No Have you received the Pneumonia Vaccine: No ROS Obtained: Yes All systems reviewed & no additional complaints except as documented Physical Exam General General appearance: alert and in no apparent distress Head Head exam: atraumatic and normocephalic Eye Eye exam: Present PERRL and EOMI ENT ENT exam: Present normal oropharynx Neck Neck exam: Present full ROM and trachea midline Chest Chest inspection: Present symmetric chest wall rise Respiratory Respiratory exam: Present normal lung sounds bilaterally; Absent stridor Cardiovascular Cardiovascular exam: Present regular rate and normal rhythm Abdominal Exam Abdominal exam: Present soft; Absent distention or tenderness Extremities Exam Extremities exam: Present full ROM and tenderness (At a 1 cm very superficial laceration over the lateral aspect of the left thumb. It is hemostatic, evaluation. Subcutaneous,) Neurological Exam Neurological exam: Present alert and oriented X3 Psychiatric Psychiatric exam: Present normal mood Skin Skin exam: Present warm and dry Medical Decision Making Medical Records Screening: Per USPSTF and CDC recommendations, given the prevalence of disease in our region, it is our hospital?s policy to screen for HIV and viral Hepatitis for all patients aged 18 and over and those with ongoing risk factors. Joel Inquiry Pt receiving controlled substance: No Vital Signs: 05/03/25 12:11 05/03/25 13:14 Temperature 98.4 F 98.4 F Temperature Source Oral Pulse Rate 76 Pulse Rate [Right Radial] 76 Respiratory Rate 16 18 Blood Pressure 149/96 H Blood Pressure [Right Arm] 149/96 H Blood Pressure Mean [Right Arm] 113 Blood Pressure Source Automatic Cuff Blood Pressure Source [Right Arm] Manual Cuff/ Auscultation Blood Pressure Position Sitting 02 Sat by Pulse Oximetry 100 Oxygen Delivery Method Room Air Lab Data Lab Results 05/03/25 12:36: WBC 10.5, RBC 4.56, Hgb 14.0, Hct 42.5, MCV 93.2, MCH 30.7, MCHC 32.9, RDW 12.5, Plt Count 291, MPV 9.5, Neut % (Auto) 75.1, Lymph % (Auto) 18.3, Villalba % (Auto) 4.8, Eos % (Auto) 1.1, Baso % (Auto) 0.3, Neut # (Auto) 7.9 H, Lymph # (Auto) 1.9, Villalba # (Auto) 0.5, Eos # (Auto) 0.1, Baso # (Auto) 0.0, PT 10.4, INR 0.93, APTT 24.8, Total Bilirubin 0.8, Direct Bilirubin 0.1, Conjugated Bilirubin 0.0, Indirect Bilirubin 0.7, Unconjugated Bilirubin 0.7, AST 31, ALT 24, Alkaline Phosphatase 89, Total Protein 7.3, Albumin 4.3, Serum HCG, Qual Negative, HCV Ab MILES w/Rflx PCR Qn Negative, HIV Ag/Ab Combo Qual Negative 05/03/25 12:36 Orders (Tests/Meds): ED MEDICATIONS Discontinued Medications Generic Name Dose Route Start Last Admin Trade Name Freq PRN Reason Stop Dose Admin Tetanus/Reduced Diphtheria/Acell Pertussis 0.5 ml 05/03/25 12:09 05/03/25 12:53 Tet/Diphth/Pert-Adult 0.5ml Syringe IM 05/03/25 12:10 0.5 ml .ONCE ONE Administration Trimethoprim/Sulfamethoxazole 1 each 05/03/25 12:12 05/03/25 12:52 Sulfa/Trimethoprim 1 Tablet PO 05/03/25 12:13 1 each ONCE ONE Administration ORDERS Category Date Time Status Complete Blood Count Auto Diff Stat Lab 05/03/25 12:36 Completed HBsAg Screen Stat Lab 05/03/25 12:36 Received HCG Qualitative, Serum Stat Lab 05/03/25 12:36 Completed HIV Combo Stat Lab 05/03/25 12:36 Completed Hepatitis C Ab Qual. W/ RFX Stat Lab 05/03/25 12:36 Completed Liver Panel Stat Lab 05/03/25 12:36 Completed PT/PTT Stat Lab 05/03/25 12:36 Completed Medical Decision Narrative: Patient is a 44-year-old female with no medical history presenting today for occupational exposure with a scalpel to the thumb. Very superficial laceration and hemostatic now. She already irrigated the wound and cleansed it with Betadine. It looks clean on my examination. She is neurovascularly intact and it is a superficial laceration. Following appropriate exposure guidelines obtaining labs per order set and consulted with employee health. I also consulted with the PEPline who recommends prophylaxis if patient's titers returned positive or are not returned within 72 hours. Recommends vaccination for hepatitis B as well as hepatitis B immunoglobulin including Biktarvy for HIV prophylaxis. Again, this is only recommended if titers for the patient that she was operating on come back positive or if they are unable to get the titers. Employee health notified. Patient's Tdap updated. Given Bactrim for wound prophylaxis given hand involvement and allergy to cephalosporins. Return precautions discussed. Discharged in hemodynamically stable condition. Critical Care Critical Care Time Critical Care Time: No
[2025-05-03 12:11] VITALS: BP 149/96; PULSE 76; RESP 16; TEMP 36.9; O2SAT 100; BMI 24.2
--- NOTE | 2025-05-03 12:12 | PC.NURSE ---
supervisor baking contacted regarding incident. 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
[2025-05-03 12:47] LABS: Hematocrit 42.5 % (37.0-47.0); Hemoglobin 14.0 g/dL (12.2-16.2); Immature Granulocytes % 0.4 %; Mean Corpuscular HGB Conc 32.9 g/dL (31.8-35.4); Mean Corpuscular Hemoglobin 30.7 pg (27.0-31.2); Mean Corpuscular Volume 93.2 fl (81-99); Nucleated Red Blood Cells % 0 %; Platelet Count 291 K/mm3 (142-424); Red Blood Count 4.56 M/mm3 (4.20-5.40); Red Cell Distribution Width-SD 43.2 fL; White Blood Count 10.5 K/mm3 (4.8-10.8)
[2025-05-03] MEDS: SULFA/TRIMETHOPRIM 1 TABLET 1 EACH PO (12:52)
[2025-05-03] MEDS: TET/DIPHTH/PERT-ADULT 0.5ML SYRINGE 0.5 ML IM (12:53)
[2025-05-03 12:59] LABS: Activated Partial Thrombo Time 24.8 seconds (22.8-30.6); INR 0.93 (0.9-1.1); Prothrombin Time 10.4 seconds (10.1-12.5)
[2025-05-03 13:00] LABS: Alanine Aminotransferase 24 U/L (12-78); Albumin Level 4.3 g/dl (3.5-5.0); Alkaline Phosphatase 89 U/L (38-126); Aspartate Amino Transferase 31 U/L (14-36); Bilirubin,Direct 0.1 mg/dl (0.0-0.4); Bilirubin,Indirect 0.7 mg/dL (0.0-0.9); Bilirubin,Total 0.8 mg/dl (0.2-1.3); Bilirubin,Unconjugated 0.7 mg/dL (0.0-1.1); Total Protein,Serum 7.3 g/dl (6.3-8.2)
[2025-05-03 13:14] VITALS: BP 149/96; PULSE 76; RESP 18; TEMP 36.9; O2SAT 98
[2025-05-03 14:15] LABS: HCG Qualitative, Serum Negative (Negative); Hepatitis C Ab Qual. W/ RFX NEGATIVE (Negative)
[2025-05-04 08:23] LABS: Hepatitis B Surface Antigen Negative (Negative)
== END 2025-05-03 13:14 | disposition home or self-care (01) ==
PROVIDERS: Emergency Provider Emergency Medicine; PCP Internal Medicine
DX: S61.012A Laceration without foreign body of left thumb without damage to nail, initial encounter (principal); W26.8XXA Contact with other sharp object(s), not elsewhere classified, initial encounter; Z77.21 Contact with and (suspected) exposure to potentially hazardous body fluids
CPT/HCPCS: 80076; 84703; 85025; 85610; 85730; 86803; 87340; 87389; 90471; 90715; 99283